=== PATIENT | male | born 1960 | race Caucasian/White ===

== ENCOUNTER 2019-09-04 09:13 | Outpatient (CLI) | payer BC, SELFPAY ==
--- NOTE | ~2019-09-04 | CT_ITS ---
EXAMINATION: CT abdomen pelvis wo/w con DATE: 09/04/2019 10:26 INDICATION: Hematuria TECHNIQUE: Computed tomography (CT) of the abdomen and pelvis was performed without and with 40 cc Om nipaque 350 intravenous contrast. The dose-length product was 851.52 mGy-cm. Automated exposure contr ol and iterative reconstruction technique were employed. COMPARISON: CT dated 06/03/2017 FINDINGS: There are nonobstructing bilateral renal stones, largest in the left kidney measuring 6-7 m m maximum dimension. No ureteral stones or hydronephrosis. Lung bases unremarkable. No significant pleural or pericardial effusion. Heart size is normal. There is atherosclerosis of the aorta without aneurysm. Enlarged prostate gland. Small subcentimeter hypodensities of the liver, most likely benign cysts or hemangioma. The spleen, p ancreas and adrenal glands are unremarkable. There are bilateral hypovascular lesions of the kidneys, largest in the right kidney measuring 1.9 cm, likely benign cysts. Ureters are normal in course and caliber. Bladder is unremarkable. Enlarged prostate gland. There is a chronic L3 burst fracture uncha nged. There is advanced degenerative changes at L2-3 and L3-4. IMPRESSION: 1. Nonobstructing bilateral nephrolithiasis. 2: Enlarged prostate gland. 3: Stable chronic L3 burst fracture. Reviewed, dictated and finalized at location A. ORICAL SITE GUIDE
== END 2019-09-04 09:14 | disposition home or self-care (01) ==
LOC: CHSIMG 09:17
PROVIDERS: PCP Internal Medicine; Visit Provider Internal Medicine
DX: R31.9 Hematuria, unspecified (principal)
CPT/HCPCS: 74178; Q9965

== ENCOUNTER 2019-12-09 14:12 | Outpatient (CLI) | payer BC, SELFPAY ==
--- NOTE | ~2019-12-09 | XR_ITS ---
XR abdomen/kub 1V 12/09/2019 14:26 Indication: Renal stones. Procedure: KUB Comparison: 01/31/2009 Findings: There are bilateral renal stones, largest in the lower pole of the left kidney measuring 10 mm. There are chronic compression deformities of L3 and L4. Bowel gas pattern nonobstructive. There are pelvic vascular calcifications. Impression: 1: Bilateral nephrolithiasis. Reviewed, dictated and finalized at location A. Impression: 1: Bilateral nephrolithiasis.
== END 2019-12-09 14:13 | disposition home or self-care (01) ==
LOC: CHSIMG 14:14
PROVIDERS: PCP Internal Medicine; Visit Provider Urology
DX: N20.0 Calculus of kidney (principal)
CPT/HCPCS: 74018

== ENCOUNTER 2019-12-23 00:24 | Outpatient (CLI) | payer BC, SELFPAY ==
[2019-12-23 17:33] LABS: SARS-CoV-2 RNA PCR Negative
== END 2019-12-23 00:25 | disposition home or self-care (01) ==
LOC: ANHCOVIDDT 00:24
PROVIDERS: PCP Internal Medicine; Visit Provider Urology
DX: Z01.818 Encounter for other preprocedural examination (principal); Z11.59 Encounter for screening for other viral diseases
CPT/HCPCS: 87635; C9803; U0003

== ENCOUNTER 2019-12-25 05:34 | Day surgery (SDC) | payer BC, SELFPAY ==
[2019-12-17 09:22] VITALS: BMI 25.1
--- NOTE | 2019-12-24 12:16 | WPDANESEPPF ---
Anes - Initial Pre Proc Eval Procedure: Operation Date: 12/25/19 07:30 Proposed Procedures p Flexible Cystoscopy, Left Extracorporeal Shock Wave Lithotripsy - Sanjiv Maynard MD Date/Time: 12/24/19 12:16 Surgeon: Sanjiv Maynard MD Pre Op Diagnosis: left kidney stones Patient Data Age: 59 Gender: M Height: 5 ft 9 in Weight: 77.11 kg Allergies Allergy/AdvReac Type Severity Reaction Status Date / Time No Known Allergies Allergy Mild Verified 12/25/19 06:38 Home Medications Medication Instructions Recorded Confirmed Type hydrocodone-acetaminophen 1 tablet PO BID 12/17/19 12/25/19 History mv-min-vit C-Glu-Blanca [id number] 250 mg PO DAILY 12/17/19 12/25/19 History [Airborne (with lysine acetate)] Patient hx anesthesia problems: none Family hx anesthesia problems: none PMFSH Past Medical History Medical History (Updated 12/24/19 @ 12:16 by Kana Reddy MD) Migraine Anes - Eval Final PreProcedure Day of Procedure 12/24/19 12:16 Patient weight: normal Heart: regular rate and rhythm Lungs: clear to auscultation Airway: Mallampati scale class II Neurological: alert and oriented Last oral intake: >/= 8 hours ASA classification: II Emergent: no Anesthetic plan: proceed Anesthesia type and monitoring: general LMA and standard monitoring Informed Consent: The patient's anesthetic plan and its attendant risks and benefits were discussed with the patient/family/POA. Questions were solicited and answers provided to the satisfaction of the patient/family/POA.
[2019-12-25] VITALS (8 sets, daily range): BP systolic 109–131; BP diastolic 70–91; PULSE 60–68; RESP 10–16; TEMP 36.1–36.6; O2SAT 99–100
--- NOTE | ~2019-12-25 | XR_ITS ---
EXAMINATION: XR abdomen/kub 1V DATE: 12/25/2019 06:34 INDICATION: Nephrolithiasis for planned lithotripsy. TECHNIQUE: A supine view of the abdomen on 2 radiographs was obtained. COMPARISON: CT dated 09/04/2019 FINDINGS: Unchanged 607 mm stone projecting over the lower pole of the left kidney. 2 mm stone projecting over the upper pole of the right kidney. Atherosclerotic calcifications and phleboliths in the pelvis. Nor mal bowel gas pattern. Lung bases are clear. Chronic L3 burst fracture. Severe disc height loss with sclerotic degenerative endplate changes at L3-L4. IMPRESSION: 1. Bilateral nephrolithiasis. Reviewed, dictated and finalized at location A.
--- NOTE | 2019-12-25 06:53 | WPDHPUPDATE1 ---
History and Physical Update Update Date/Time: 12/25/19 06:53 History and Physical has been reviewed, including an updated exam of the patient. There are NO changes in the patient's condition. Risks, benefits, and alternatives have been discussed and questions answered. Patient agrees to proceed with procedure.
[2019-12-25] MEDS: LACTATED RINGERS 1,000 ML 30 ML IV CONT (06:55)
[2019-12-25] MEDS: ceFAZolin 2 GM/D5W 50 ML 2 GM/50 ML BAG IVPB (07:23)
--- NOTE | 2019-12-25 08:04 | PM.PROC ---
Procedure Note - Detailed Date of procedure: 12/25/19 Pre-op diagnosis: left kidney stones Left renal stone 7 mm, microscopic hematuria Post-op diagnosis: same Procedure performed: Flexible cystoscopy, ESWL of left renal calculus Description of procedure: Patient was taken to the operative suite and correctly identified. Once anesthesia was obtained was prepped and draped usual sterile fashion. Sixteen Frisian scope was inserted into the bladder in direct vision there were no urethral strictures. External sphincter was intact. Prostate has some mild lateral lobe hypertrophy. The bladder itself was inspected in its entirety. Both ureteral orifices normal anatomic position. No tumors or other irregularities seen. Scope was removed. 2% viscous lidocaine inserted into the urethra. The left renal stone was then localized in both planes. Two thousand five hundred shocks were given to the stone. It appeared to have good fragmentation. He tolerated procedure well without any complications and is taken recovery room stable condition. He will follow up in the office in 7-10 days with a KUB. Anesthesia: GLMA Surgeon: Sanjiv Maynard MD Drains: No Packing: No Pathology: none sent Complications: No immediate complications Condition: stable Disposition: PACU
--- NOTE | 2019-12-25 08:46 | SUR.PHASEI ---
0845 12/24- SPOUSE CALLED WITH UPDATE.
== END 2019-12-25 09:39 | disposition home or self-care (01) ==
PROVIDERS: PCP Internal Medicine; Visit Provider Urology
PROC: (CPT 50590; principal; 2019-12-25 07:30)
DX: N20.0 Calculus of kidney (principal)
CPT/HCPCS: 50590; 74018; A9270; J0690; J1100; J2250; J2405; J2704; J3010; J7030; J7120

== ENCOUNTER 2021-06-23 09:14 | Outpatient (CLI) | payer BC, SELFPAY ==
[2021-06-23 09:49] LABS: Influenza Control Valid (Valid)
[2021-06-23 09:54] LABS: SARS-CoV-2 Ag Negative (Negative)
== END 2021-06-23 09:15 | disposition home or self-care (01) ==
LOC: CHSLAB 09:19
PROVIDERS: PCP Internal Medicine; Visit Provider Internal Medicine
DX: J06.9 Acute upper respiratory infection, unspecified (principal); Z20.822 Contact with and (suspected) exposure to COVID-19
CPT/HCPCS: 87426; 87804; C9803

== ENCOUNTER 2021-07-14 12:26 | Outpatient (CLI) | payer BC, SELFPAY ==
--- NOTE | ~2021-07-14 | CT_ITS ---
EXAMINATION: CT abdomen pelvis wo con DATE: 07/14/2021 13:10 INDICATION: Hematuria. Left flank pain. TECHNIQUE: Computed tomography (CT) of the abdomen and pelvis was performed without intravenous contr ast. Automated exposure control and iterative reconstruction technique were employed. The dose-length product was 201.51 mGy-cm. COMPARISON: CT abdomen and pelvis 09/04/2019 FINDINGS: The visualized portions of the lung bases demonstrate mild atelectasis. No pleural effusion . The heart size is normal. There are coronary artery calcifications. No pericardial effusion. Calcif ied left hilar lymph nodes are consistent with old granulomatous disease. There is a small right post erior diaphragmatic hernia containing fat. The liver, spleen, gallbladder, pancreas, and adrenal glan ds are normal. There is a 3 mm stone in right kidney. Left kidney is normal. The prostate is moderate ly enlarged. There is diverticulosis of the colon without evidence of diverticulitis. There are no di lated loops of bowel. The appendix is normal. There are no pathologically enlarged lymph nodes. There is no free intraperitoneal fluid. There is severe thoracic and lumbar spondylosis. There is a chroni c compression fracture of L3 with 3/5 loss of height. IMPRESSION: 1. 3 mm nonobstructing right kidney stone. Reviewed, dictated and finalized at location A. AL SKINNER
== END 2021-07-14 12:27 | disposition home or self-care (01) ==
LOC: CHSIMG 12:28
PROVIDERS: PCP Internal Medicine; Visit Provider Internal Medicine
DX: R31.9 Hematuria, unspecified (principal); R10.9 Unspecified abdominal pain
CPT/HCPCS: 74176

== ENCOUNTER 2021-11-10 10:22 | Outpatient (CLI) | payer BC, SELFPAY ==
--- NOTE | ~2021-11-10 | XR_ITS ---
XR knee LT 3V DATE: 11/10/2021 10:56 INDICATION: Left posterior knee pain. History of meniscus surgery. TECHNIQUE: 4 views including sunrise COMPARISON: 06/15/2014 left knee FINDINGS: There is severe loss of medial compartment joint space height. There is minimal periarticul ar spurring at the lateral compartment. Lateral compartment joint space appears well preserved. No fracture, dislocation, periosteal reaction or bone destruction or radiopaque intra-articular loose body or chondrocalcinosis is noted. IMPRESSION: Prominent loss of medial compartment joint space and minimal periarticular spurring at th e lateral compartment, consistent with osteoarthritis Reviewed, dictated and finalized at location A. IMPRESSION: Prominent loss of medial compartment joint space and minimal periar ticular spurring at the lateral compartment, consistent with osteoarthritis
== END 2021-11-10 10:23 | disposition home or self-care (01) ==
LOC: CHSIMG 10:23
PROVIDERS: PCP Internal Medicine; Visit Provider Internal Medicine
DX: M25.562 Pain in left knee (principal)
CPT/HCPCS: 73562

== ENCOUNTER 2022-01-09 10:11 | Outpatient (CLI) | payer BC, SELFPAY ==
--- NOTE | 2022-01-09 10:20 | PC.NURSE ---
Pt to room 211 amb. A&Ox3. Has no complaints. Plan of care explained. Consent signed. Oreinted to room. Call lieberman in reach. Reminded to call with needs.
[2022-01-09] MEDS: diphenhydrAMINE HCl CAP 25 MG CAPSULE PO (10:35)
[2022-01-09] MEDS: ACETAMINOPHEN 325 MG TABLET 650 MG PO (10:35)
[2022-01-09] MEDS: FAMOTIDINE 20 MG TABLET PO (10:35)
[2022-01-09] MEDS: BEBTELOVIMAB 175 MG/2 ML VIAL IV PUSH (10:40)
--- NOTE | 2022-01-09 11:10 | PC.NURSE ---
Pt tolerated medication well. Has no complaints. Discharged to home amb per self.
== END 2022-01-09 10:12 | disposition home or self-care (01) ==
LOC: CHSTREATRM 10:17
PROVIDERS: PCP Internal Medicine; Visit Provider Nurse Practitioner Family
DX: U07.1 COVID-19 (principal); J44.9 Chronic obstructive pulmonary disease, unspecified
CPT/HCPCS: A9270; M0222; Q0222

== ENCOUNTER → 2023-05-28 09:36 | Outpatient (CLI) | payer OTHER, SELFPAY ==
--- NOTE | ~2023-05-28 | CT_ITS ---
CT Scan of the Chest without Contrast: Clinical Indication: Lung nodule Technique: Contiguous sections were acquired throughout the chest without intravenous contrast. Dose reduction technique was used on this scan by utilizing automated exposure control and iterative recon struction technique. The dose-length product (DLP) was 92.93 mGy-cm. Findings: There is no evidence of any significant mediastinal, hilar or axillary lymphadenopathy. Coronary sukhdev ry calcifications are present. There is no evidence of pleural or pericardial effusion. There is a left upper lobe mass extending directly into the left hilum, measuring approximately 4.0 x 3.2 cm in size. Right lung is clear. Images through the upper abdomen reveal no abnormalities. Impression: 4.0 x 3.2 cm left upper lobe mass extending to the left hilum, most consistent with bronchogenic carc inoma. Tissue sampling recommended to establish histologic diagnosis. Contrast-enhanced chest CT and/ or PET/CT could be considered for further imaging evaluation, as indicated. Reviewed, dictated and finalized at location . CIATE PROFESSOR OF ECONOMICS Impression: 4.0 x 3.2 cm left upper lobe mass extending to the left hilum, most consistent with bronchogenic carcinoma. Tissue sampling recommended to establish histologi c diagnosis. Contrast-enhanced chest CT and/or PET/CT could be considered for f urther imaging evaluation, as indicated.
== END ==
DX: R91.8 Other nonspecific abnormal finding of lung field (principal)
CPT/HCPCS: 71250

== ENCOUNTER 2024-06-04 11:51 | Outpatient (CLI) | payer BC, SELFPAY ==
--- NOTE | ~2024-06-04 | XR_ITS ---
Clinical Indication: Dyspnea PA and lateral views of the chest: Comparison: 05/30/2015 Findings: The lungs are clear, without evidence of focal consolidation or pleural effusion. Cardiome diastinal silhouette is within normal limits. Bones and soft tissues are unremarkable. Impression: Clear lungs. Reviewed, dictated and finalized at location . TO DOOR FUNDRAISING COLLECTOR Impression: Clear lungs.
--- NOTE | ~2024-06-04 | CT_ITS ---
EXAMINATION: CTA chest PE protocol DATE: 06/04/2024 14:42 INDICATION: Dyspnea. Lung cancer. TECHNIQUE: Computed tomography (CT) pulmonary angiogram of the chest was performed with 100 mL Omnipa que-350 intravenous contrast. Additional 3D reconstructions utilizing coronal maximum intensity proje ction (MIP) were performed. Automated exposure control and iterative reconstruction technique were em ployed. The dose-length product was 650.08 mGy-cm. COMPARISON: None FINDINGS: No pulmonary embolism.. Sensitivity is however decreased in the subsegmental pulmonary arteries due t o suboptimal timing of the contrast bolus with the peak of contrast density passed into the aorta. Vo lume loss in the left hemithorax with elevation of the left hemidiaphragm and postoperative changes o f prior left upper lobectomy. Mild emphysema. No suspicious pulmonary nodules, pneumonia, pulmonary e ezekiel or pleural effusion. Heart size is normal. Atherosclerotic coronary artery calcifications. No pe ricardial effusion. No pathologically enlarged thoracic lymphadenopathy. Small sliding-type hiatal he rnia. Severe thoracic spondylosis. IMPRESSION: 1. No pulmonary embolism. Sensitivity decreased in some of the and smaller subsegmental pulmonary art eries due to suboptimal timing of the contrast bolus. No other acute cardiopulmonary disease. 2. Mild emphysema and status post post left upper lobectomy. 3. Small sliding-type hiatal hernia. Reviewed, dictated and finalized at location B. NE PAINTER IMPRESSION: 1. No pulmonary embolism. Sensitivity decreased in some of the and smaller subs egmental pulmonary arteries due to suboptimal timing of the contrast bolus. No other acute cardiopulmonary disease. 2. Mild emphysema and status post post left upper lobectomy. 3. Small sliding-type hiatal hernia.
[2024-06-04 12:22] LABS: D Dimer 1.22 mg/L (0.19-0.50)
[2024-06-04 12:34] LABS: Free T3 2.92 pg/mL (2.18-3.98); Free T4 Free Thyroxine 0.87 ng/dL (0.76-1.46); NT Pro B Type Natriuretic Pept 34 pg/mL (0-125); Thyroid Stimulating Hormone 1.74 uIU/mL (0.36-3.74)
[2024-06-04 14:18] LABS: Estimated Glomerular Filt Rate > 60
== END 2024-06-04 11:52 | disposition home or self-care (01) ==
PROVIDERS: PCP Internal Medicine; Visit Provider Internal Medicine
DX: R06.00 Dyspnea, unspecified (principal); R63.5 Abnormal weight gain; J43.9 Emphysema, unspecified; K44.9 Diaphragmatic hernia without obstruction or gangrene; Z90.2 Acquired absence of lung [part of]
CPT/HCPCS: 36415; 71046; 71275; 83880; 84439; 84443; 84481; 85380; Q9967

== ENCOUNTER 2024-06-05 07:57 | Outpatient (CLI) | payer BC, SELFPAY ==
--- NOTE | ~2024-06-05 | CT_ITS ---
EXAMINATION: CTA chest PE protocol DATE: 06/05/2024 08:34 INDICATION: Lung cancer presenting with dyspnea and elevated d-dimer. TECHNIQUE: Computed tomography (CT) pulmonary angiogram of the chest was performed with 100 mL Omnipa que-350 intravenous contrast. Additional 3D reconstructions utilizing coronal maximum intensity proje ction (MIP) were performed. Automated exposure control and iterative reconstruction technique were em ployed. The dose-length product was 506.25 mGy-cm. COMPARISON: 06/04/2024 FINDINGS: No pulmonary embolism. Sensitivity is again decreased in the subsegmental pulmonary arteries due to s uboptimal timing of the contrast bolus. Volume loss in the left hemithorax with elevation of the left hemidiaphragm and postoperative change of prior left upper lobectomy. Mild emphysema. Are couple juan carlos ateral calcified pulmonary nodules with calcified left hilar lymph nodes consistent with old granulom atous disease. No suspicious pulmonary nodules, pneumonia, pulmonary edema or pleural effusion. Heart size is normal. Atherosclerotic coronary artery calcifications. No pericardial effusion. Thoracic ao rta is normal in caliber with no dissection. No pathologically enlarged thoracic lymphadenopathy. Sma ll sliding-type hiatal hernia. Severe thoracic spondylosis. IMPRESSION: 1. No pulmonary embolism. Sensitivity decreased in some of the smaller subsegmental pulmonary arterie s due to suboptimal timing of the contrast bolus. 2. Status post left upper lobectomy with mild emphysema but no acute cardiopulmonary disease. 3. Small sliding-type hernia. Reviewed, dictated and finalized at location B. NG STAMPER IMPRESSION: 1. No pulmonary embolism. Sensitivity decreased in some of the smaller subsegme ntal pulmonary arteries due to suboptimal timing of the contrast bolus. 2. Status post left upper lobectomy with mild emphysema but no acute cardiopulm onary disease. 3. Small sliding-type hernia.
--- NOTE | ~2024-06-05 | US_ITS ---
EXAMINATION: US venous doppler [facility] DATE: 06/05/2024 08:42 INDICATION: Lung cancer. Lower limb edema. Positive d-dimer. TECHNIQUE: Grayscale ultrasound images without and with compression and Doppler ultrasound images of the bilateral lower extremity veins were obtained. COMPARISON: None. FINDINGS: The visualized portions of right common femoral vein, profunda (deep) femoral vein, femoral vein, pop liteal vein, posterior tibial veins, peroneal veins, gastrocnemius vein and greater saphenous vein ou tflow are patent. The visualized portions of left common femoral vein, profunda femoral vein, femoral vein, popliteal v ein, posterior tibial veins, peroneal veins, gastrocnemius vein and greater saphenous vein outflow ar e patent. IMPRESSION: 1. No deep venous thrombosis in either lower limb. Reviewed, dictated and finalized at location B. S PORTER
== END 2024-06-05 07:58 | disposition home or self-care (01) ==
LOC: CHSIMG 08:01
PROVIDERS: PCP Internal Medicine; Visit Provider Internal Medicine
DX: Z12.2 Encounter for screening for malignant neoplasm of respiratory organs (principal); R06.00 Dyspnea, unspecified; M79.89 Other specified soft tissue disorders; R79.1 Abnormal coagulation profile; Z90.2 Acquired absence of lung [part of]; J43.9 Emphysema, unspecified; K44.9 Diaphragmatic hernia without obstruction or gangrene
CPT/HCPCS: 71275; 93970; Q9967

== ENCOUNTER 2024-06-25 07:52 | Outpatient (CLI) | payer BC, SELFPAY ==
--- NOTE | ~2024-06-25 | CT_ITS ---
CT of the Abdomen and Pelvis: Indication: Abdominal pain Technique: 2.5 mm axial scans were obtained through the abdomen and pelvis following intravenous adm inistration of 100 cc of Omnipaque 350. Dose reduction technique was used on this scan by utilizing a utomated exposure control and iterative reconstruction technique. The dose-length product (DLP) was 6 14.42 mGy-cm. COMPARISON: 07/14/2021 Findings: Scans through the lung bases are unremarkable. The liver, spleen, pancreas, gallbladder, adrenals and kidneys are within normal limits. There are at herosclerotic calcifications of the aorta. No lymphadenopathy. No bowel obstruction or bowel wall thickening. There is sigmoid diverticulosis. Images through the pelvis were performed. Urinary bladder unremarkable. No pelvic mass seen. Prostate gland enlarged. No ascites. Stable L3 compression fracture with severe degenerative change at the L3-L4 level. Impression: No acute abnormality. Prostatomegaly. Stable L3 compression fracture. Reviewed, dictated and finalized at location . ER COORDINATOR Impression: No acute abnormality. Prostatomegaly. Stable L3 compression fracture.
--- NOTE | ~2024-06-25 | US_ITS ---
EXAMINATION: US thyroid DATE: 06/25/2024 08:27 INDICATION: Enlarged thyroid. TECHNIQUE: Multiple ultrasound images of the thyroid were obtained. COMPARISON: None. FINDINGS: The right thyroid lobe measures 3.1 x 1.4 x 1.2 cm. The left thyroid lobe measures 2.3 x 1.2 x 0.9 c m. There is normal echotexture and echogenicity throughout the thyroid gland. No discrete nodules id entified. Normal vascular flow is present. IMPRESSION: 1. Normal thyroid. Reviewed, dictated and finalized at location A. ARY MEDIA SPECIALIST IMPRESSION: 1. Normal thyroid.
[2024-06-30 16:03] LABS: H pylori, Urea Breath NOT DETECTED (NOT DETECTED)
== END 2024-06-25 07:53 | disposition home or self-care (01) ==
LOC: CHSIMG 07:53
PROVIDERS: PCP Internal Medicine; Visit Provider Nurse Practitioner Family
DX: R10.13 Epigastric pain (principal); R14.0 Abdominal distension (gaseous); R11.0 Nausea; R63.0 Anorexia; N40.0 Benign prostatic hyperplasia without lower urinary tract symptoms; M48.56XA Collapsed vertebra, not elsewhere classified, lumbar region, initial encounter for fracture
CPT/HCPCS: 74177; 76536; 83013; Q9967

== ENCOUNTER 2024-08-12 15:47 | Outpatient (CLI) | payer BC, SELFPAY ==
--- NOTE | ~2024-08-12 | XR_ITS ---
CHEST RADIOGRAPH CLINICAL HISTORY: COPD exacerbation . COMPARISON: 06/04/2024 TECHNIQUE: Single portable view of the chest. FINDINGS The cardiomediastinal silhouette is unremarkable. The lungs are clear. Visualized osseous structures and soft tissues are unremarkable. IMPRESSION: No focal infiltrate or effusion. Reviewed, dictated and finalized at location A. FITTER
[2024-08-12 16:08] LABS: Basophils Absolute Auto 0.08 K/mm3 (0.00-0.10); Basophils Percent Auto 0.6 % (0.0-1.0); Eosinophils Absolute Auto 0.28 K/mm3 (0.02-0.50); Eosinophils Percent Auto 1.9 % (1.0-6.0); Hematocrit 42.2 % (40.0-54.0); Immature Granulocyte Absolute 0.07 K/mm3 (0.00-0.00); Immature Granulocyte Percent A 0.5 % (0.0-0.0); Lymphocytes Absolute Auto 1.37 K/mm3 (1.10-4.50); Lymphocytes Percent Auto 9.5 % (18.0-42.0); Mean Corpuscular HGB Conc 33.2 g/dL (32-36); Mean Corpuscular Hemoglobin 29.6 pg (27.0-31.0); Mean Corpuscular Volume 89.2 fL (78.0-102.0); Mean Platelet Volume 9.1 fl (8.7-11.0); Monocytes Absolute Auto 1.04 K/mm3 (0.10-0.90); Monocytes Percent Auto 7.2 % (2.0-11.0); Neutrophils Absolute Auto 11.61 K/mm3 (1.70-7.20); Neutrophils Percent Auto 80.3 % (50.0-70.0); Platelet Count Result 261 K/mm3 (150-420); Red Blood Count 4.73 M/mm3 (4.70-6.10); Red Cell Distribution Width 12.6 % (11.6-14.4); White Blood Count 14.5 K/mm3 (4.8-10.8)
--- OUTSIDE RECORDS SUMMARY | 2024-08-12 16:33 | XMS_ITS | Clinical Summary ---
Author Organization [place] [id number] [facility] Address [address] [place] [address] Care Team Providers Care Merchandising Lead Name Role Phone Sharmin Polanco MD Primary Care Provider [phone] Chico Magaña MD Unavailable Cyrus Gottlieb MD PhD Unavailable Allergies Active Allergy Reactions Criticality Noted Date Comments Paclitaxel Shortness of breath,Flushing (skin) High 08/20/2023 Medications HYDROcodone-acet aminophen (NORCO) 10-325 mg per tablet Take 1 tablet by mouth as needed for pain 06/07/2023 Active LORazepam (ATIVAN) 1 mg tabletIndication s:anxiety Take 1 tablet (1 mg total) by mouth daily 05/31/2023 Active loratadine (CLARITIN) 10 mg tablet Take 1 tablet (10 mg total) by mouth daily Active umeclidinium-ania anteroL (ANORO ELLIPTA) 62.5-25 mcg/actuation blister with device Inhale 1 puff daily Active Active Problems Problem Noted Date Diagnosed Date COPD (chronic obstructive pulmonary disease) 09/2023 Assessment & Plan (07/17/2023 8:39 AM ANIMAL TECHNICIAN): - add long acting bronchodilator inhaler - add albuterol PRN Acute pain 07/16/2023 Assessment & Plan (07/20/2023 10:43 AM ANIMAL TECHNICIAN): - APS removed thoracic epidural - multimodal pain regimen: Tylenol, Nan, Robaxin, PRN oxycodone 5 mg q4h and IV dilaudid for breakthrough Current smoker 07/16/2023 Assessment & Plan (07/16/2023 2:58 PM ANIMAL TECHNICIAN): - Smoking cessation education - nicotine patch if needed - secretion management 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 S/p Left thoracotomy, left upper lobectomy, PA plasty on 07/16 - Chest tube removed, follow up post-pull CXR - encourage IS - ADAT - bowel regimen - DVT PPX: daily lovenox, SCDs - PT to eval and treat Lung mass 06/12/2023 Resolved Problems Problem Noted Date Diagnosed Date Resolved Date Hyponatremia 07/18/2023 07/20/2023 Assessment & Plan (07/18/2023 8:43 AM ANIMAL TECHNICIAN): - free water restrict , 1 L/day - monitor Encounters Date Type Department Care Team Description 06/15/2024 11:09 AM ANIMAL TECHNICIAN - 06/15/2024 11:59 PM ANIMAL TECHNICIAN Hospital Encounter [facility] [address] [place] [id number] Diagnosis unknown Discharge Disposition: Discharge to home or self care 05/19/2024 2:00 PM ANIMAL TECHNICIAN Office Visit [facility] [address] [place] [phone] Angelique Chinchilla, KRISTEN Malignant neoplasm of hilus of left lung (HCC) (Primary Dx) 05/19/2024 1:30 PM ANIMAL TECHNICIAN Lab [facility] [address] [place] [address] Malignant neoplasm of hilus of left lung (HCC) 05/14/2024 7:50 AM CDT - 05/14/2024 11:59 PM CDT Hospital Encounter [facility] Cardiac Testing [address] [place] [address] Enlarged pulmonary artery (HCC); Pulmonary heart disease, unspecified (HCC) Discharge Disposition: Discharge to home or self care from Last 3 Months Surgical History Surgery Date Site/Laterality Comments KIDNEY STONE SURGERY KNEE SURGERY PORT PLACEMENT CHEST >5 YEARS 08/09/2023 N/A PORT REMOVAL 04/01/2024 N/A Medical History Medical History Date Comments Hyperlipidemia Osteoarthritis Cluster headaches Kidney stones Male erectile dysfunction, unspecified Spinal stenosis Knee pain Actinic keratosis Hemorrhoids Sacroiliitis (HCC) Personal history of colonic polyps Panniculitis Restless leg syndrome Anxiety PONV (postoperative nausea and vomiting) Cancer (CMS/HCC) (HCC) Lung disease Family History Medical History Relation Name Comments Brain cancer Father Family history of malignant neoplasm - (Added by TW Conv) Relation Name Status Comments Father Social History Tobacco Use Types Packs/Day Years Used Date Smoking Tobacco: Former Cigarettes 0.1 49 0 07/16/1974 - 07/16/2023 Smokeless Tobacco: Never Tobacco Cessation:Counseling Given: Not Answered Comments:Has cut down to 1 pack a day(from 2) [facility] Utilities Answer Date Recorded In the past 12 months has Gevo, Microm[employer], oil, or water [employer] threatened to shut off services in your home? No 07/19/2023 Social Connection and Isolat ion Panel [NHANES] Answer Date Recorded In a typical week, how many times do you talk on the phone with family, friends, or neighbors? More than three times a week 07/19/2023 How often do you get togethe r with friends or relatives? More than three times a week 07/19/2023 How often do you attend [facility] or latter day services? More than 4 times per year 07/19/2023 Do you belong to any clubs o r organizations such as restorationism groups, unions, fraternal or athletic groups, or school groups? No 07/19/2023 How often do you attend meet ings of the clubs or organizations you belong to? Never 07/19/2023 Are you , , di vorced, , never , or living with a partner? 07/19/2023 AUDIT-C Answer Date Recorded Frequency of Alcohol Consumption Not on file 05/19/2024 Q2: How many drinks containi ng alcohol do you have on a typical day when you are drinking? Patient does not drink Frequency of Binge Drinking Not on file 11/2023 Overall Financial Resource Strain (CARDIA) Answe r Date Recorded How hard is it for you to pa y for the very basics like food, housing, medical care, and heating? Not hard at all 07/19/2023 Hunger Vital Sign Answer Date Recorded Within the past 12 months, y ou worried that your food would run out before you got the money to buy more. Never true 07/19/19 24 Within the past 12 months, t he food you bought just didn't last and you didn't have money to get more. Never true 07/19/2023 PRAPARE - Transportation Answer Date Re corded In the past 12 months, has l ack of transportation kept you from medical appointments or from getting medications? No 11/2023 In the past 12 months, has l ack of transportation kept you from meetings, work, or from getting things needed for daily living? No 07/19/2023 Housing Stability Vital Sign Answer Mynor e Recorded In the last 12 months, was t here a time when you were not able to pay the mortgage or rent on time? No 07/19/2023 In the last 12 months, how many places have you lived? 1 07/19/2023 In the last 12 months, was t here a time when you did not have a steady place to sleep or slept in a group home (including now)? No 07/19/2023 Personal Safety Answer Date Recorded Have you ever been in or are you currently in a harmful physical or emotional relationship or is someone making you feel afraid or unsafe? Denies 04/01/2024 Sex and Gender Information Value Date Recorded Sex Assigned at Not on file Legal Sex Male 8:54 AM ANIMAL TECHNICIAN Gender Identity Male 06/18/2023 10:47 PM ANIMAL TECHNICIAN Sexual Orientation Straight 06/18/2023 10 :47 PM ANIMAL TECHNICIAN Obstetrics History Last Filed Vital Signs Vital Sign Reading Time Taken Comments Blood Pressure 124/79 05/19/2024 1:18 PM ANIMAL TECHNICIAN Pulse 68 05/19/2024 1:18 PM ANIMAL TECHNICIAN Temperature 36.9 ??C (98.5 ??F) 05/19/2024 1:18 PM CS T Respiratory Rate 18 05/19/2024 1:18 PM ANIMAL TECHNICIAN Oxygen Saturation 97% 05/19/2024 1:18 PM ANIMAL TECHNICIAN Inhaled Oxygen Concentration - - Weight 91.6 kg (202 lb) 05/19/2024 1:18 PM ANIMAL TECHNICIAN Height 170.2 cm (5' 7 ) 12/03/2023 10:14 AM CDT Body Mass Index 31.64 12/03/2023 10:14 AM CDT Plan of Treatment Health Maintenance Due Date Last Done Comments Colon Cancer Screening-Colonoscopy 1960 Depression Screening 1960 Hepatitis C Screening 1960 Prostate Cancer Screening-PSA 1960 Pneumococcal vaccine <65 (1 of 2 - PCV) 1966 Hepatitis B Screening 1978 Regular Well Visit/Exam 18-64 1978 Zoster Vaccine (1 of 2) 2010 Covid-19 Vaccine (3 - season) 03/15/202409/2020, 02/24/2021 Influenza Vaccine (#1) 2024 04/27/2014 DTaP/Tdap/Td Vaccine (3 - Td or Tdap) 08/24/203004/2021, 10/06/2010 Medical Devices Implanted Type Area Learning Coach Device Identifier Shelf Expiration Date Model / Serial / Lot [employer] Xcela Power Port 8fr [id number] - [id number] Implanted:Qty: 1 on 08/09/2023 at [facility] [employer] 03/17/2028 [id number] / / [id number] Procedures Procedure Name Priority Date/Time Associated Diagnosis Comments CT BODY OUTSIDE CONSULT Routine 06/15/2024 11:09 AM ANIMAL TECHNICIAN Diagnosis unknown EGFR Routine 05/19/2024 1:04 PM ANIMAL TECHNICIAN Malignant neoplasm of hilus of left lung (HCC) DIFFERENTIAL AUTO Routine 05/19/2024 1:0 4 PM ANIMAL TECHNICIAN Malignant neoplasm of hilus of left lung (HCC) CBC WITH AUTO DIFFERENTIAL Routine 05/19/2024 1:04 PM ANIMAL TECHNICIAN Malignant neoplasm of hilus of left lung (HCC) COMPREHENSIVE METABOLIC PANEL Routine 05/19/2024 1:04 PM ANIMAL TECHNICIAN Malignant neoplasm of hilus of left lung (HCC) TRANSTHORACIC ECHO (TTE) COMPLETE W DOPPLER/CF WO CONTRAST Routine 05/14/2024 8:15 AM CDT 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 ?? No central pulmonary embolism. ??However full evaluation for pulmonary embolism is limited given the lack of pulmonary artery opacification. 2. Postsurgical changes of left upper lobectomy. ??No suspicious pulmonary nodules. 3. Interval resolution of bilateral lower lobe airspace opacities. The findings, conclusions and recommendations within this report do not replace the initial findings, conclusions ??and recommendations made at the facility where the study was performed based upon the imaging and clinical condition at that time. ??Comparison with the prior report and clinical history is necessary. ??The provided images may or may not represent the [place] source data set and thus may contain changes that may lower the accuracy of this second-opinion interpretation. Dictated by: Darron Dolan M.D. The radiology attending physician has personally reviewed this study, and had reviewed and/or edited this written report and agrees with it. Electronically signed by: eHrb Guillory M.D. Narrative 06/15/2024 12:15 PM ANIMAL TECHNICIAN EXAMINATION: RADIOLOGY CONSULTATION ON OUTSIDE IMAGING STUDY STUDY INITIALLY PERFORMED: 06/05/[address] [facility]. TYPE OF STUDY: Multiple CT images of the chest with intravenous contrast are provided at the time of this interpretation. CONTRAST ROUTE: Contrast was administered via the intravenous route. The protocol was adequate to address the clinical question. The outside final report was not available at the time of this second opinion interpretation. 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 COMPARISON: CT chest abdomen 03/10/2024. FINDINGS: Heart size normal. ??No pericardial effusion. ??Pulmonary arteries are not well opacified. ??No central pulmonary embolism but there is limited evaluation of the segmental and subsegmental pulmonary arteries. ??Thoracic aorta and main pulmonary artery are normal in caliber. ??No supraclavicular, axillary, or mediastinal lymphadenopathy. Postsurgical changes of left upper lobectomy. ??Emphysematous changes bilaterally. ??Previously seen bilateral lower lobe airspace opacities have resolved. ??Stable 4 mm pulmonary nodule within the right upper lobe (table position -53.8). No acute processes in the imaged upper abdomen. No suspicious osseous lesions. Procedure Note Herb Guillory MD - 06/15/2024 EXAMINATION: RADIOLOGY CONSULTATION ON OUTSIDE IMAGING STUDY STUDY INITIALLY PERFORMED: 06/05/[address] [facility]. TYPE OF STUDY: Multiple CT images of the chest with intravenous contrast are provided at the time of this interpretation. CONTRAST ROUTE: Contrast was administered via the intravenous route. The protocol was adequate to address the clinical question. The outside final report was not available at the time of this second opinion interpretation. 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 COMPARISON: CT chest abdomen 03/10/2024. FINDINGS: Heart size normal. No pericardial effusion. Pulmonary arteries are not well opacified. No central pulmonary embolism but there is limited evaluation of the segmental and subsegmental pulmonary arteries. Thoracic aorta and main pulmonary artery are normal in caliber. No supraclavicular, axillary, or mediastinal lymphadenopathy. Postsurgical changes of left upper lobectomy. Emphysematous changes bilaterally. Previously seen bilateral lower lobe airspace opacities have resolved. Stable 4 mm pulmonary nodule within the right upper lobe (table position -53.8). No acute processes in the imaged upper abdomen. No suspicious osseous lesions. IMPRESSION: 1. No central pulmonary embolism. However full evaluation for pulmonary embolism is limited given the lack of pulmonary artery opacification. 2. Postsurgical changes of left upper lobectomy. No suspicious pulmonary nodules. 3. Interval resolution of bilateral lower lobe airspace opacities. The findings, conclusions and recommendations within this report do not replace the initial findings, conclusions and recommendations made at the facility where the study was performed based upon the imaging and clinical condition at that time. Comparison with the prior report and clinical history is necessary. The provided images may or may not represent the [place] source data set and thus may contain changes that may lower the accuracy of this second-opinion interpretation. Dictated by: Darron Dolan M.D. The radiology attending physician has personally reviewed this study, and had reviewed and/or edited this written report and agrees with it. Electronically signed by: Herb Guillory M.D. us Cyrus Gottlieb MD PhD IMG CT PROCEDURES Fin al Result * eGFR (05/19/2024 1:04 PM ANIMAL TECHNICIAN) eGFR >90 >=60 mL/min/1. 73 m2 Comment: Interpretive Data Reference Interval Normal ?>/= 90 mL/min/1.73m2 Mildly decreased* ? 60 - 89 mL/min/1.73m2 Mildly to moderately decreased ?45 - 59 mL/min/1.73m2 Moderately to severely decreased ??30 - 44 mL/min/1.73m2 Severely decreased ?15 - 29 mL/min/1.73m2 Kidney Failure ?< 15 ??mL/min/1.73m2 *Relative to young adult level Estimated glomerular filtration rate is determined by the 2020 CKD-EPI equation recommended by the National Kidney Foundation (A Unifying Approach to GFR Estimation: Recommendations of the NKF-ASK Task Force on Reassessing the Inclusion of Race in Diagnosing Kidney Disease, JASN 2020). The CKD-EPI equation should not be used for patients with unstable renal function and has not been validated in children and those over 70. Current interpretive data was last reviewed 2021. Testing performed by: [address] [address] Blood 05/19/2024 1:04 PM ANIMAL TECHNICIAN 05/19/2024 1:07 PM ANIMAL TECHNICIAN Cyrus Gottlieb MD PhD LAB BLOOD ORDERABLES Final Result [facility] [address] [facility] Department [place] [address] * (ABNORMAL) Differential, auto (05/19/2024 1:04 PM ANIMAL TECHNICIAN) Neutrophil abs 7.0(H) 1.5 - 6.5 K/cumm Comment:Testing performed by : [address] [address] Imm gran abs 0.1 0.0 - 0.1 K/cumm [facility] Comment:Testing performed by : [address] [address] Lymphocyte abs 1.6 0.8 - 3.3 K/cumm [facility] Comment:Testing performed by : [address] [address] Monocyte abs 0.7 0.2 - 0.8 K/cumm [facility] Comment:Testing performed by : [address] [address] Eosinophil abs 0.4 0.0 - 0.5 K/cumm [facility] Comment:Testing performed by : [address] [address] Basophil abs 0.1 0.0 - 0.1 K/cumm [facility] Comment:Testing performed by : [address] [address] Neutrophil pct 71.5 % [facility] Comment: Interpretive Data Percent cell count reference ranges are not reported, since discordance with absolute values may lead to misinterpretation of CBC data. Current Interpretive Data was last revised on 2017. Testing performed by: [address] [address] Imm gran pct 0.6 % [facility] Comment: Interpretive Data Percent cell count reference ranges are not reported, since discordance with absolute values may lead to misinterpretation of CBC data. Current Interpretive Data was last revised on 2017. Testing performed by: [address] [address] Lymphocyte pct 16.6 % [facility] Comment: Interpretive Data Percent cell count reference ranges are not reported, since discordance with absolute values may lead to misinterpretation of CBC data. Current Interpretive Data was last revised on 2017. Testing performed by: [address] [address] Monocyte pct 7.0 % [facility] Comment: Interpretive Data Percent cell count reference ranges are not reported, since discordance with absolute values may lead to misinterpretation of CBC data. Current Interpretive Data was last revised on 2017. Testing performed by: [address] [address] Eosinophil pct 3.6 % [facility] Comment: Interpretive Data Percent cell count reference ranges are not reported, since discordance with absolute values may lead to misinterpretation of CBC data. Current Interpretive Data was last revised on 2017. Testing performed by: [address] [address] Basophil pct 0.7 % [facility] Comment: Interpretive Data Percent cell count reference ranges are not reported, since discordance with absolute values may lead to misinterpretation of CBC data. Current Interpretive Data was last revised on 2017. Testing performed by: [address] [address] Blood 05/19/2024 1:04 PM ANIMAL TECHNICIAN 05/19/2024 1:07 PM ANIMAL TECHNICIAN us Cyrus Gottlieb MD PhD LAB BLOOD ORDERABLES Final Result [facility] [address] [facility] [place] [address] * (ABNORMAL) CBC with auto differential (05/19/2024 1:04 PM ANIMAL TECHNICIAN) WBC 9.8 3.8 - 9.9 K/cumm Comment:Testing performed by : [address] [address] Hgb 13.7 13.0 - 17.5 g/dL [facility] Comment:Testing performed by : [address] [address] Hct 40.5 38.9 - 50.3 % [facility] Comment:Testing performed by : [address] [address] Plt 233 150 - 400 K/cumm [facility] Comment:Testing performed by : [address] [address] MPV 9.0(L) 9.1 - 12.3 fL [facility] Comment:Testing performed by : [address] [address] RBC 4.59 4.30 - 5.80 M/cumm [facility] Comment:Testing performed by : [address] [address] MCV 88.2 81.3 - 96.4 fL [facility] Comment:Testing performed by : [address] [address] MCH 29.8 27.1 - 33.3 pg [facility] Comment:Testing performed by : [address] [address] MCHC 33.8 32.3 - 35.7 g/dL [facility] Comment:Testing performed by : [address] [address] RDW CV 15.3(H) 11.1 - 14.9 % [facility] Comment:Testing performed by : [address] [address] RDW SD 49.5(H) 35.7 - 48.1 fL [facility] Comment:Testing performed by : [address] [address] NRBC abs 0.00 0.00 - 0.01 K/cumm [facility] Comment:Testing performed by : [address], [place]., [address] Blood 05/19/2024 1:04 PM ANIMAL TECHNICIAN 05/19/2024 1:07 PM ANIMAL TECHNICIAN us Cyrus Gottlieb MD PhD LAB BLOOD ORDERABLES Final Result Performing Organization Address City/State/[facility] Co de Phone Number [facility] [facility] Department [place] [address] * Comprehensive metabolic panel (05/19/2024 1:04 PM ANIMAL TECHNICIAN) Sodium 138 135 - 145 mmol/L Comment:Testing performed by : [address] [address] Potassium, pl 4.4 3.3 - 4.9 mmol/L [facility] Comment:Testing performed by : [address] [address] Chloride 101 97 - 110 mmol/L [facility] Comment:Testing performed by : [address] [address] CO2 27 22 - 32 mmol/L [facility] Comment:Testing performed by : [address] [address] Anion gap 10 2 - 15 mmol/L [facility] Comment:Testing performed by : [address] [address] BUN 16 6 - 25 mg/dL [facility] Comment:Testing performed by : [address] [address] Creatinine 0.80 0.80 - 1.30 mg/dL [facility] Comment:Testing performed by : [address] [address] Glucose 90 70 - 199 mg/dL [facility] Comment: Interpretive Data Fasting glucose >/= 126 mg/dl is diagnostic for diabetes. ?? Fasting is defined as no caloric intake for at least 8 hours. Fasting glucose between 100 mg/dl to 125 mg/dl is diagnostic of prediabetes. In a patient with classic symptoms of hyperglycemia or hyperglycemic crisis, a random glucose >/= 200 mg/dl is diagnostic for diabetes. In the absence of unequivocal hyperglycemia, results should be confirmed by repeat testing. The classification and Diagnosis of Diabetes Diabetes Care 2021; 46: S19-S40. Current interpretive data was last revised 2022. Testing performed by: [address] [address] Calcium 9.2 8.5 - 10.3 mg/dL [facility] Comment:Testing performed by : [address] [address] Bilirubin, total 0.3 0.1 - 1.2 mg/dL [facility] Comment:Testing performed by : [address] [address] Protein, pl 7.2 6.5 - 8.5 g/dL [facility] Comment:Testing performed by : [address] [address] Albumin 4.3 3.5 - 5.0 g/dL [facility] Comment:Testing performed by : [address] [address] Alk phos 113 40 - 130 Units/L [facility] Comment:Testing performed by : [address] [address] ALT 27 7 - 55 Units/L [facility] Comment:Testing performed by : [address] [address] AST 23 10 - 50 Units/L [facility] Comment:Testing performed by : [address] [address] Blood 05/19/2024 1:04 PM ANIMAL TECHNICIAN 05/19/2024 1:07 PM ANIMAL TECHNICIAN us Cyrus Gottlieb MD PhD LAB BLOOD ORDERABLES Final Result [facility] [address] [facility] [place] [address] * TRANSTHORACIC ECHO (TTE) COMPLETE W DOPPLER/CF WO CONTRAST (05/14/2024 8:15 AM CDT) Anatomical Region Laterality Modality Ultrasound 05/14/2024 8:15 AM CDT Narrative 05/14/2024 10:00 AM CDT ? Adult Echocardiogram + ----- --------+ :Name: SEFERINO RODRIGUEZ JR.Study Date: 05/14/2024 ?Status: MHE ?: : ? Patient Location: MHE CARD^^^MHEHeight: 67 in ?: : ? Weight: 200 lbBP: 146/87 mmHg: :: 1960 ?Gender: Male ?BSA: 2.0 m2 ?: :Reason For Study: evaluate for enlarged pulmonary artery ?: :Ordering Physician: HEATHER, ? : :CYRUS ? : :Referring Physician: HEATHER, ?: :CYRUS LINDA ?: :Performed By: Britney ?: :Ronald, RDCS ?: + ----- --------+ Procedure A two-dimensional transthoracic echocardiogram with color flow and Doppler was performed. Left Ventricle The left ventricle is normal in size. There is normal left ventricular wall thickness. Left ventricular systolic function is normal. Ejection Fraction = 55-60%. The left ventricular wall motion is normal. Right Ventricle The right ventricle is normal size. There is normal right ventricular wall thickness. The right ventricular systolic function is normal. Atria The left atrial size is normal. Right atrial size is normal. Mitral Valve The mitral valve is normal. Tricuspid Valve The tricuspid valve is normal. Aortic Valve Aortic valve structure is normal. No aortic stenosis . No aortic regurgitation is present. Pulmonic Valve The pulmonic valve is not well visualized. Great Vessels The aortic root is normal size. Pericardium There is no pericardial effusion. Diastology Grade I diastolic dysfunction, (abnormal relaxation pattern). Interpretation Summary The left ventricle is normal in size. There is normal left ventricular wall thickness. Left ventricular systolic function is normal. Ejection Fraction = 55-60%. The left ventricular wall motion is normal. The right ventricle is normal size. There is normal right ventricular wall thickness. The right ventricular systolic function is normal. Grade I diastolic dysfunction, (abnormal relaxation pattern). + + :Measurements with Normals ?: :IVSd: ?(0.6-1.2 ?? LVIDd: ?(3.5-5.7 ?? Ao root diam: ?(2.0-3.7 ?? : :0.78 cm ?cm) ?3.7 cm ?cm) ?3.0 cm ? cm) ?: :LVPWd: ? (0.6-1.1 ?? LVIDs: ?(3.1-4.6 ?? LA dimension: ?(1.9-4.0 ?? : :0.78 cm ?cm) ?2.6 cm ?cm) ?3.7 cm ? cm) ?: + + MMode/2D Measurements & Calculations RVDd: 3.3 cm FS: 30.2 % ?Ao root area: 7.1 cm2 ??LVOT diam: 2.0 cm ? EDV(Teich): 57.0 ml ?LVOT area: 3.1 cm2 ? ESV(Teich): 23.7 ml Doppler Measurements & Calculations MV E max omari: ? MV dec time: ? Ao V2 max: ? LV V1 max P.7 cm/sec ? 0.21 sec ? 145.0 cm/sec ? 6.9 mmHg MV A max omari: ?Ao max P.4 mmHgLV V1 mean P.3 cm/sec ?Ao V2 mean: ?3.0 mmHg MV E/A: 0.77 ? 97.3 cm/sec ?LV V1 max: ? Ao mean PG: ?131.0 cm/sec ? 4.0 mmHg ? LV V1 mean: ? Ao V2 VTI: 29.1 cm 79.1 cm/sec ? RODOLFO(I,D): 2.9 cm2 ??LV V1 VTI: 27.0 cm ? RODOLFO(V,D): 2.8 cm2 ? SV(LVOT): 84.8 ml ?? PA V2 max: ? RV V1 max: ? TR max omari: ?112.0 cm/sec ? 77.6 cm/sec ?258.0 cm/sec ?PA max P.0 mmHg ? TR max PG: ?26.6 mmHg ?RVSP(TR): 29.6 mmHg ? RAP systole: 3.0 mmHg Electronically signed by: Bharathi Johnson MD 05/14/2024 10:00 AM Procedure Note Bharathi Johnson MD - 05/14/2024 Adult Echocardiogram + ----- --------+ :Name: MICHAELSEFERINO JR.Study Date: 05/14/2024 Status:MHE : : [facility]^^^MHEHeight: 67in : : Weight:200 lbBP: 146/87 mmHg: :: 1960 Gender: Male BSA: 2.0m2 : :Reason For Study: evaluate for enlarged pulmonary artery: :Ordering Physician: ,: :CYRUS: :Referring Physician: ,: :CYRUS MCKEON: :Performed By: Britney: :EDGARDO Cardenas: + ----- --------+ Procedure A two-dimensional transthoracic echocardiogram with color flow and Dopplerwas performed. Left Ventricle The left ventricle is normal in size. There is normal left ventricularwall thickness. Left ventricular systolic function is normal. Ejection Fraction= 55-60%. The left ventricular wall motion is normal. Right Ventricle The right ventricle is normal size. There is normal right ventricularwall thickness. The right ventricular systolic function is normal. Atria The left atrial size is normal. Right atrial size is normal. Mitral Valve The mitral valve is normal. Tricuspid Valve The tricuspid valve is normal. Aortic Valve Aortic valve structure is normal. No aortic stenosis . No aorticregurgitation is present. Pulmonic Valve The pulmonic valve is not well visualized. Great Vessels The aortic root is normal size. Pericardium There is no pericardial effusion. Diastology Grade I diastolic dysfunction, (abnormal relaxation pattern). Interpretation Summary The left ventricle is normal in size. There is normal left ventricular wall thickness. Left ventricular systolic function is normal. Ejection Fraction = 55-60%. The left ventricular wall motion is normal. The right ventricle is normal size. There is normal right ventricular wall thickness. The right ventricular systolic function is normal. Grade I diastolic dysfunction, (abnormal relaxation pattern). + + :Measurements with Normals: :IVSd: (0.6-1.2 LVIDd: (3.5-5.7 Ao root diam:(2.0-3.7 : :0.78 cm cm) 3.7 cm cm) 3.0 cm cm): :LVPWd: (0.6-1.1 LVIDs: (3.1-4.6 LA dimension:(1.9-4.0 : :0.78 cm cm) 2.6 cm cm) 3.7 cm cm): + + MMode/2D Measurements & Calculations RVDd: 3.3 cm FS: 30.2 % Ao root area: 7.1 cm2 LVOT diam: 2.0cm EDV(Teich): 57.0 ml LVOT area: 3.1cm2 ESV(Teich): 23.7 ml Doppler Measurements & Calculations MV E max omari: MV dec time: Ao V2 max: LV V1 max P.7 cm/sec 0.21 sec 145.0 cm/sec 6.9 mmHg MV A max omari: Ao max P.4 mmHgLV V1 mean P.3 cm/sec Ao V2 mean: 3.0 mmHg MV E/A: 0.77 97.3 cm/sec LV V1 max: Ao mean P.0 cm/sec 4.0 mmHg LV V1 mean: Ao V2 VTI: 29.1 cm 79.1 cm/sec RODOLFO(I,D): 2.9 cm2 LV V1 VTI: 27.0cm RODOLFO(V,D): 2.8 cm2 SV(LVOT): 84.8 ml PA V2 max: RV V1 max: TR max omari: 112.0 cm/sec 77.6 cm/sec 258.0 cm/sec PA max P.0 mmHg TR max P.6 mmHg RVSP(TR): 29.6mmHg RAP systole: 3.0 mmHg Electronically signed by: Bharathi Johnson MD 05/14/2024 10:00 AM us Cyrus Gottlieb MD PhD CV ECHO PROCEDURES Fi nal Result from Last 3 Months Insurance [employer] [place] [place] Directives For more information, please contact: [phone] * Full Code (Latest Code Status on File) Date Activated Date Inactivated Comments 04/01/2024 11:35 AM 04/02/2024 5:04 AM * Full Code Date Activated Date Inactivated Comments 08/09/2023 11:38 AM 08/10/2023 5:09 AM * Full Code Date Activated Date Inactivated Comments 07/16/2023 12:19 PM 07/21/2023 2:39 PM Care Teams Merchandising Lead Relationship Specialty Start Date End Date Sharmin Polanco MD [address] [place] [address] PCP - General 09/25/17 Chico Magaña MD [address] [place] [address] Referring Physician Thoracic Surgery 06/28/23 Cyrus Gottlieb MD PhD [address] [place] [address] MEDICAL ONCOLOGY, [address] [address] Medical Oncologist/Trophy Assembler Medical Oncology 06/28/23
--- OUTSIDE RECORDS SUMMARY | 2024-08-12 16:33 | XMS_ITS | Referral Summary ---
Author Organization [facility] [address] [facility] Address [address] [place] [address] Care Team Providers Care Requirements Engineer Name Role Phone Sharmin Polanco MD Primary Care Provider hCico Magaña MD Unavailable Cyrus Gottlieb MD PhD Unavailable Encounters Date Type Department Care Team Description 06/15/2024 11:09 AM ACCOUNTANT BUDGET - 06/15/2024 11:59 PM ACCOUNTANT BUDGET Hospital Encounter [facility] [address] [place] [id number] Diagnosis unknown Discharge Disposition: Discharge to home or self care 05/19/2024 1:30 PM ACCOUNTANT BUDGET Lab [facility] [address] [place] [address] Malignant neoplasm of hilus of left lung (HCC) 05/19/2024 2:00 PM ACCOUNTANT BUDGET Office Visit [facility] [address] [facility] [address] [place] [address] Aneglique Chinchilla, JOURNEYMAN PRESSMAN Malignant neoplasm of hilus of left lung (HCC) (Primary Dx) 05/14/2024 7:50 AM CDT - 05/14/2024 11:59 PM CDT Hospital Encounter [facility] Cardiac Testing [facility] [place] [address] Enlarged pulmonary artery (HCC); Pulmonary heart disease, unspecified (HCC) Discharge Disposition: Discharge to home or self care from Last 3 Months Allergies Active Allergy Reactions Criticality Noted Date [...] 09/2023 Assessment & Plan (07/17/2023 8:39 AM ACCOUNTANT BUDGET): - add long acting bronchodilator inhaler - add albuterol PRN Acute pain 07/16/2023 Assessment & Plan (07/20/2023 10:43 AM ACCOUNTANT BUDGET): - APS removed thoracic epidural - multimodal pain regimen: Tylenol, Nan, Robaxin, PRN oxycodone 5 mg q4h and IV dilaudid for breakthrough Current smoker 07/16/2023 Assessment & Plan (07/16/2023 2:58 PM ACCOUNTANT BUDGET): - Smoking cessation education - nicotine patch if needed - secretion management Malignant neoplasm of hilus of left lung 023 Cancer Staging:Clinical stage from 07/30/2023:Stage IIB(cT2a, cN1, cM0) - Signed by Cyrus Gottlieb MD PhD on 07/30/2023 Assessment & Plan (07/20/2023 10:29 AM ACCOUNTANT BUDGET): Left hilar mass. S/p Left thoracotomy, left upper lobectomy, PA plasty on 07/16 - Chest tube removed, follow up post-pull CXR - encourage IS - ADAT - bowel regimen - DVT PPX: daily lovenox, SCDs - PT to eval and treat Lung mass 06/12/2023 Resolved Problems Problem Noted Date Diagnosed Date Resolved Date Hyponatremia 07/18/2023 07/20/2023 Assessment & Plan (07/18/2023 8:43 AM ACCOUNTANT BUDGET): - free water restrict , 1 L/day - monitor Social History Tobacco Use Types Packs/Day Years Used Date Smoking Tobacco: Former Cigarettes 0.1 49 0 07/16/1974 - 07/16/2023 Smokeless Tobacco: Never Tobacco Cessation:Counseling Given: Not Answered Comments:Has cut down to 1 pack a day(from 2) [facility] Utilities Answer Date Recorded In the past 12 months has [employer], gas, oil, or water [employer] threatened to shut off services in your [...] week 07/19/2023 How often do you attend [facility] or protestant services? More than 4 times per year 07/19/2023 Do you belong to any clubs o r organizations such as religion groups, unions, fraternal or athletic groups, or [...] place to sleep or slept in a care home (including now)? No 07/19/2023 Personal Safety Answer Date Recorded Have you ever been in or are you currently in a harmful physical or emotional relationship or is someone making you feel afraid or unsafe? Denies 04/01/2024 Sex and Gender Information Value Date Recorded Sex Assigned at Not on file Legal Sex Male 8:54 AM ACCOUNTANT BUDGET Gender Identity Male 06/18/2023 10:47 PM ACCOUNTANT BUDGET Sexual Orientation Straight 06/18/2023 10 :47 PM ACCOUNTANT BUDGET Last Filed Vital Signs Vital Sign Reading Time Taken Comments Blood Pressure 124/79 05/19/2024 1:18 PM ACCOUNTANT BUDGET Pulse 68 05/19/2024 1:18 PM ACCOUNTANT BUDGET Temperature 36.9 ??C (98.5 ??F) 05/19/2024 1:18 PM CS T Respiratory Rate 18 05/19/2024 1:18 PM ACCOUNTANT BUDGET Oxygen Saturation 97% 05/19/2024 1:18 PM ACCOUNTANT BUDGET Inhaled Oxygen Concentration - - Weight 91.6 kg (202 lb) 05/19/2024 1:18 PM ACCOUNTANT BUDGET Height 170.2 cm (5' 7 ) 12/03/2023 10:14 AM CDT Body Mass Index 31.64 12/03/2023 10:14 AM CDT Plan of Treatment Not on file Medical Devices Implanted Type Area Correction Officer Supervisor Device Identifier Shelf Expiration Date Model / Serial / Lot [employer] Xcela Power Port 8fr [id number] - [id number] Implanted:Qty: 1 on 08/09/2023 at [facility] [employer] 03/17/2028 [id number] / / [id number] Procedures Procedure Name Priority Date/Time Associated Diagnosis Comments CT BODY OUTSIDE CONSULT Routine 06/15/2024 11:09 AM ACCOUNTANT BUDGET Diagnosis unknown EGFR Routine 05/19/2024 1:04 PM ACCOUNTANT BUDGET Malignant neoplasm of hilus of left lung (HCC) DIFFERENTIAL AUTO Routine 05/19/2024 1:0 4 PM ACCOUNTANT BUDGET Malignant neoplasm of hilus of left lung (HCC) CBC WITH AUTO DIFFERENTIAL Routine 05/19/2024 1:04 PM ACCOUNTANT BUDGET Malignant neoplasm of hilus of left lung (HCC) COMPREHENSIVE METABOLIC PANEL Routine 05/19/2024 1:04 PM ACCOUNTANT BUDGET Malignant neoplasm of hilus of left lung (HCC) TRANSTHORACIC ECHO (TTE) COMPLETE W DOPPLER/CF WO CONTRAST Routine 05/14/2024 8:15 AM CDT 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 ?? No central pulmonary embolism. ??However [...] images may or may not represent the [place] source data set and thus may contain changes that may lower the accuracy of this second-opinion interpretation. Dictated by: Darron Dolan M.D. The radiology attending physician has personally reviewed this study, and had reviewed and/or edited this written report and agrees with it. Electronically signed by: Herb Guillory M.D. Narrative 06/15/2024 12:15 PM ACCOUNTANT BUDGET EXAMINATION: RADIOLOGY CONSULTATION ON OUTSIDE IMAGING STUDY STUDY INITIALLY PERFORMED: 06/05/2024 at [facility]. TYPE OF STUDY: Multiple CT images of [...] IMAGING STUDY STUDY INITIALLY PERFORMED: 06/05/2024 at [facility]. TYPE OF STUDY: Multiple CT images of [...] images may or may not represent the [place] source data set and thus may contain [...] al Result * eGFR (05/19/2024 1:04 PM ACCOUNTANT BUDGET) [facility] eGFR >90 >=60 mL/min/1. 73 m2 Comment: [...] was last reviewed 2021. Testing performed by: [facility], [address] [place] [address]., [address] Blood 05/19/2024 1:04 PM ACCOUNTANT BUDGET 05/19/2024 1:07 PM ACCOUNTANT BUDGET us Cyrus Gottlieb MD PhD LAB BLOOD ORDERABLES Final Result [facility] [address] [facility] Department [place] [address] * (ABNORMAL) Differential, auto (05/19/2024 1:04 PM ACCOUNTANT BUDGET) [facility] Neutrophil abs 7.0(H) 1.5 - 6.5 K/cumm Comment:Testing performed by : [facility], [address] [place] [address], [place]., [address] Imm gran abs 0.1 0.0 - 0.1 K/cumm [facility] Comment:Testing performed by : [address], [place]., [address] Lymphocyte abs 1.6 0.8 - 3.3 K/cumm [facility] Comment:Testing performed by : [address], [place]., [address] Monocyte abs 0.7 0.2 - 0.8 K/cumm [facility] Comment:Testing performed by : [address] [address] Eosinophil abs 0.4 0.0 - 0.5 K/cumm [facility] Comment:Testing performed by : [address] [address] Basophil abs 0.1 0.0 - 0.1 K/cumm [facility] Comment:Testing performed by : [address] [address] Neutrophil pct 71.5 % [facility] Comment: Interpretive Data Percent cell count reference ranges are not reported, since discordance with absolute values may lead to misinterpretation of CBC data. Current Interpretive Data was last revised on 2017. Testing performed by: [address] [address] Imm gran pct 0.6 % [facility] Comment: Interpretive Data Percent cell count reference ranges are not reported, since discordance with absolute values may lead to misinterpretation of CBC data. Current Interpretive Data was last revised on 2017. Testing performed by: [address] [address] Lymphocyte pct 16.6 % [facility] Comment: Interpretive Data Percent cell count reference ranges are not reported, since discordance with absolute values may lead to misinterpretation of CBC data. Current Interpretive Data was last revised on 2017. Testing performed by: [address] [address] Monocyte pct 7.0 % [facility] Comment: Interpretive Data Percent cell count reference ranges are not reported, since discordance with absolute values may lead to misinterpretation of CBC data. Current Interpretive Data was last revised on 2017. Testing performed by: [address] [address] Eosinophil pct 3.6 % [facility] Comment: Interpretive Data Percent cell count reference ranges are not reported, since discordance with absolute values may lead to misinterpretation of CBC data. Current Interpretive Data was last revised on 2017. Testing performed by: [address] [address] Basophil pct 0.7 % [facility] Comment: Interpretive Data Percent cell count reference ranges are not reported, since discordance with absolute values may lead to misinterpretation of CBC data. Current Interpretive Data was last revised on 2017. Testing performed by: [address] [address] Blood 05/19/2024 1:04 PM ACCOUNTANT BUDGET 05/19/2024 1:07 PM ACCOUNTANT BUDGET us Cyrus Gottlieb MD PhD LAB BLOOD ORDERABLES Final Result [facility] [address] [facility] Department [place] [address] * (ABNORMAL) CBC with auto differential (05/19/2024 1:04 PM ACCOUNTANT BUDGET) WBC 9.8 3.8 - 9.9 K/cumm Comment:Testing performed by : [address] [address] Hgb 13.7 13.0 - 17.5 g/dL [facility] Comment:Testing performed by : [address] [address] Hct 40.5 38.9 - 50.3 % [facility] Comment:Testing performed by : [address] [address] Plt 233 150 - 400 K/cumm [facility] Comment:Testing performed by : [address] [address] MPV 9.0(L) 9.1 - 12.3 fL [facility] Comment:Testing performed by : [address] [address] RBC 4.59 4.30 - 5.80 M/cumm [facility] Comment:Testing performed by : [address] [address] MCV 88.2 81.3 - 96.4 fL [facility] Comment:Testing performed by : [address] [address] MCH 29.8 27.1 - 33.3 pg [facility] Comment:Testing performed by : [address] [address] MCHC 33.8 32.3 - 35.7 g/dL [facility] Comment:Testing performed by : [address] [address] RDW CV 15.3(H) 11.1 - 14.9 % [facility] Comment:Testing performed by : [address] [address] RDW SD 49.5(H) 35.7 - 48.1 fL [facility] Comment:Testing performed by : [address] [address] NRBC abs 0.00 0.00 - 0.01 K/cumm [facility] Comment:Testing performed by : [address] [address] Blood 05/19/2024 1:04 PM ACCOUNTANT BUDGET 05/19/2024 1:07 PM ACCOUNTANT BUDGET us Cyrus Gottlieb MD PhD LAB BLOOD ORDERABLES Final Result [facility] [address] [facility] Department [place] [address] * Comprehensive metabolic panel (05/19/2024 1:04 PM ACCOUNTANT BUDGET) Pathologist [facility] Sodium 138 135 - 145 mmol/L Comment:Testing performed by : [address] [address] Potassium, pl 4.4 3.3 - 4.9 mmol/L [facility] Comment:Testing performed by : [address], [place]., [address] Chloride 101 97 - 110 mmol/L [facility] Comment:Testing performed by : [address], [place]., [address] CO2 27 22 - 32 mmol/L [facility] Comment:Testing performed by : [address], [place]., [address] Anion gap 10 2 - 15 mmol/L [facility] Comment:Testing performed by : [address], [place]., [address] BUN 16 6 - 25 mg/dL [facility] Comment:Testing performed by : [address], [place]., [address] Creatinine 0.80 0.80 - 1.30 mg/dL [facility] Comment:Testing performed by : [address] [address] Glucose 90 70 - 199 mg/dL [facility] Comment: Interpretive Data Fasting glucose >/= 126 [...] classification and Diagnosis of Diabetes Diabetes Care 202; 46: S19-S40. Current interpretive data was last revised 2022. Testing performed by: [address] [address] Calcium 9.2 8.5 - 10.3 mg/dL [facility] Comment:Testing performed by : [address] [address] Bilirubin, total 0.3 0.1 - 1.2 mg/dL [facility] Comment:Testing performed by : [address] [address] Protein, pl 7.2 6.5 - 8.5 g/dL [facility] Comment:Testing performed by : [facility], [address] [place] [address]., [address] Albumin 4.3 3.5 - 5.0 g/dL [facility] Comment:Testing performed by : [address] [address] Alk phos 113 40 - 130 Units/L [facility] Comment:Testing performed by : [address] [address] ALT 27 7 - 55 Units/L [facility] Comment:Testing performed by : [address] [address] AST 23 10 - 50 Units/L [facility] Comment:Testing performed by : [address] [address] Blood 05/19/2024 1:04 PM ACCOUNTANT BUDGET 05/19/2024 1:07 PM ACCOUNTANT BUDGET Cyrus Gottlieb MD PhD LAB BLOOD ORDERABLES Final Result [facility] [address] [facility] Department [place] [address] * TRANSTHORACIC ECHO (TTE) COMPLETE W DOPPLER/CF [...] ? : :Referring Physician: HEATHER, ?: :CYRUS MCKEON ?: :Performed By: Britney ?: :EDGARDO Cardenas ?: + ----- --------+ Procedure A two-dimensional [...] systole: 3.0 mmHg Electronically signed by: Bharathi Jonhson MD 05/14/2024 10:00 AM Procedure Note Bharathi Johnson MD - 05/14/2024 Adult Echocardiogram + ----- --------+ :Name: SEFERINO RODRIGUEZ JR.Study Date: 05/14/2024 Status:MHE : : Patient [facility]^^^MHEHeight: 67in : : Weight:200 lbBP: [...] nal Result from Last 3 Months Insurance [employer] [place] [employer] [place] Advance Directives For more information, please contact: [phone] * Full Code (Latest Code Status on File) Date Activated Date Inactivated Comments 04/01/2024 11:35 AM 04/02/2024 5:04 AM * Full Code Date Activated Date Inactivated Comments 08/09/2023 11:38 AM 08/10/2023 5:09 AM * Full Code Date Activated Date Inactivated Comments 07/16/2023 12:19 PM 07/21/2023 2:39 PM Care Teams Requirements Engineer Relationship Specialty Start Date End Date Sharmin Polanco MD [address] [place] [address] PCP - General 09/25/17 Chico Magaña MD [address] [place], [place] [id number] Referring Physician Thoracic Surgery 06/28/23 Cyrus Gottlieb MD PhD [address] [address] MEDICAL ONCOLOGY, [address] [address] Medical Oncologist/Button Station Worker Medical Oncology 06/28/23
--- OUTSIDE RECORDS SUMMARY | 2024-08-12 16:33 | XMS_ITS ---
Author Organization [place] [id number] [facility] Address [address] [place] [address] Care Team Providers Care Rn Clinical Name Role Phone Sharmin Polanco MD Primary Care Provider Chico Magaña MD Unavailable Emeka Gottlieb MD PhD Unavailable Active Problems Problem Noted Date Diagnosed Date COPD (chronic obstructive pulmonary disease) 09/2023 Assessment & Plan (07/17/2023 8:39 AM TAR HEATER): - add long acting bronchodilator inhaler - add albuterol PRN Acute pain 07/16/2023 Assessment & Plan (07/20/2023 10:43 AM TAR HEATER): - APS removed thoracic epidural - multimodal pain regimen: Tylenol, Nan, Robaxin, PRN oxycodone 5 mg q4h and IV dilaudid for breakthrough Current smoker 07/16/2023 Assessment & Plan (07/16/2023 2:58 PM TAR HEATER): - Smoking cessation education - nicotine patch if needed - secretion management Malignant neoplasm of hilus of left lung 023 Cancer Staging:Clinical stage from 07/30/2023:Stage IIB(cT2a, cN1, cM0) - Signed by Emeka Gottlieb MD PhD on 07/30/2023 Assessment & Plan (07/20/2023 10:29 AM TAR HEATER): Left hilar mass. S/p Left thoracotomy, left upper lobectomy, PA plasty on 07/16 - Chest tube removed, follow up post-pull CXR - encourage IS - ADAT - bowel regimen - DVT PPX: daily lovenox, SCDs - PT to eval and treat Lung mass 06/12/2023 Current Oncology Plans IV Maintenance Therapy Plan* Plan Start Date:12/03/2023 Plan Provider:Emeka Gottlieb MD PhD Linked Problems Malignant neoplasm of hilus of left lung (HCC) Treatment Medications No medications scheduled. Past Plans Oncology Chemotherapy Treatment Plan Name Start Date Discontinue Date Treatment Medications Discontinue Reason Plan Provider Cycles atezolizumab 21 Day Cycles 4 02/12/2024 atezolizumab (TECENTRIQ)atez olizumab (TECENTRIQ) IVPB Patient Preference Emeka Gottlieb MD PhD 3 of 6 cycles started nab-PACLItaxel (D1, D8) / CARBOplatin (D1) 21 Day Cycles - Non-Small Cell Lung 08/20/2023 10/29/2023 albumin-bound PACLItaxel (ABRAXANE)CARBO platin (PARAPLATIN)CAR BOplatin (PARAPLATIN) IVPB in 250 mLPACLItaxel (TAXOL) IVPB in 500 mL Orders Emeka Gottlieb MD PhD 3 of 4 cycles started Radiation Treatments * No radiation treatments are documented for this patient in [facility]. Treatments may have been administered in another system. Lifetime Dose Tracking * Chemical Lifetime Dose Automatic Entry Manual Entr y Fluoro Time 0.4 minutes 0.4 minutes 0 minutes Air kerma at the reference point (Ka,r) 1 mGy 1 mGy 0 mGy Resolved Problems Problem Noted Date Diagnosed Date Resolved Date Hyponatremia 07/18/2023 07/20/2023 Assessment & Plan (07/18/2023 8:43 AM TAR HEATER): - free water restrict , 1 L/day - monitor
[2024-08-12 16:44] LABS: Alanine Aminotransferase 51 U/L (16-63); Albumin Level 4.3 g/dL (3.4-5.0); Alkaline Phosphatase 126 U/L (46-116); Anion Gap 9 mmol/L (4-12); Aspartate Amino Transferase 24 U/L (15-37); Bilirubin,Total 0.5 mg/dL (0.00-1.00); Blood Urea Nitrogen 14 mg/dL (7-18); Calcium 9.4 mg/dL (8.5-10.1); Carbon Dioxide 28 mmol/L (21-32); Chloride 98 mmol/L (98-108); Estimated Glomerular Filt Rate > 60; Glucose 92 mg/dL (70-99); Osmolality Calculated 280 mOsm/kg (285-295); Potassium 4.5 mmol/L (3.5-5.1); Prostate Specific Antigen 3.3 ng/mL (< OR = 4.0); Sodium 135 mmol/L (136-145); Total Protein 7.7 g/dL (6.4-8.2)
[2024-08-12 17:22] LABS: RSV RNA, RT-PCR Negative (Negative)
== END 2024-08-12 15:48 | disposition home or self-care (01) ==
PROVIDERS: PCP Internal Medicine; Visit Provider Internal Medicine
DX: J44.1 Chronic obstructive pulmonary disease with (acute) exacerbation (principal); Z12.5 Encounter for screening for malignant neoplasm of prostate
CPT/HCPCS: 36415; 71046; 80053; 84153; 85025; 87634; G0103

== ENCOUNTER 2024-11-13 14:58 | Outpatient (CLI) | payer BC, SELFPAY ==
--- NOTE | ~2024-11-13 | US_ITS ---
BILATERAL LOWER EXTREMITY VENOUS ULTRASOUND Ordering provider: Sharmin Polanco MD History: . +DDIMER//SOB/BL LEG SWELLING . Comparison: None. FINDINGS: RIGHT LOWER EXTREMITY VEINS: --COMMON FEMORAL: Patent and free of thrombus. Normal compressibility, phasic flow and augmentation. --PROXIMAL SUPERFICIAL FEMORAL: Patent and free of thrombus. Normal compressibility, phasic flow and augmentation. --DISTAL SUPERFICIAL FEMORAL: Patent and free of thrombus. Normal compressibility, phasic flow and au gmentation. --POPLITEAL: Patent and free of thrombus. Normal compressibility, phasic flow and augmentation. --POSTERIOR TIBIAL: Patent and free of thrombus. Normal compressibility, phasic flow and augmentation . LEFT LOWER EXTREMITY VEINS: --COMMON FEMORAL: Patent and free of thrombus. Normal compressibility, phasic flow and augmentation. --PROXIMAL SUPERFICIAL FEMORAL: Patent and free of thrombus. Normal compressibility, phasic flow and augmentation. --DISTAL SUPERFICIAL FEMORAL: Patent and free of thrombus. Normal compressibility, phasic flow and au gmentation. --POPLITEAL: Patent and free of thrombus. Normal compressibility, phasic flow and augmentation. --POSTERIOR TIBIAL: Patent and free of thrombus. Normal compressibility, phasic flow and augmentation . IMPRESSION: Negative bilateral lower extremity venous US. No deep vein thrombosis. Reviewed, dictated and finalized at location A.
--- OUTSIDE RECORDS SUMMARY | 2024-11-14 14:46 | XMS_ITS ---
Author Organization [facility] [address] [facility] Address [address] [place] [address] Care Team Providers Care Metallic Yarn Slitting Machine Operator Name Role Phone Sharmin Polanco MD Primary Care Provider Chico Magaña MD Unavailable Emeka Gottlieb MD PhD Unavailable Active Problems Problem Noted Date Diagnosed Date COPD (chronic obstructive pulmonary disease) 09/2023 Assessment & Plan (07/17/2023 8:39 AM EXTRACTOR OPERATOR SOLVENT PROCESS): - add long acting bronchodilator inhaler - add albuterol PRN Acute pain 07/16/2023 Assessment & Plan (07/20/2023 10:43 AM EXTRACTOR OPERATOR SOLVENT PROCESS): - APS removed thoracic epidural - multimodal pain regimen: Tylenol, Nan, Robaxin, PRN oxycodone 5 mg q4h and IV dilaudid for breakthrough Current smoker 07/16/2023 Assessment & Plan (07/16/2023 2:58 PM EXTRACTOR OPERATOR SOLVENT PROCESS): - Smoking cessation education - nicotine patch if needed - secretion management Malignant neoplasm of hilus of left lung 023 Cancer Staging:Clinical stage from 07/30/2023:Stage IIB(cT2a, cN1, cM0) - Signed by Emeka Gottlieb MD PhD on 07/30/2023 Assessment & Plan (07/20/2023 10:29 AM EXTRACTOR OPERATOR SOLVENT PROCESS): Left hilar mass. S/p Left thoracotomy, left upper lobectomy, PA plasty on 07/16 - Chest tube removed, follow up post-pull CXR - encourage IS - ADAT - bowel regimen - DVT PPX: daily lovenox, SCDs - PT to eval and treat Lung mass 06/12/2023 Current Treatment and Therapy Plans IV Maintenance Therapy Plan* Plan Start Date:12/03/2023 Plan Provider:Emeka Gottlieb MD PhD Linked Problems Malignant neoplasm of hilus of left lung (HCC) Treatment Medications No medications scheduled. Past Treatment and Therapy Plans Oncology Chemotherapy Treatment Plan Name Start [...] MD PhD 3 of 4 cycles started Lifetime Dose Tracking * Chemical Lifetime Dose Automatic Entry Manual Entr y Fluoro Time 0.4 minutes 0.4 minutes 0 minutes Air kerma at the reference point (Ka,r) 1 mGy 1 mGy 0 mGy Resolved Problems Problem Noted Date Diagnosed Date Resolved Date Hyponatremia 07/18/2023 07/20/2023 Assessment & Plan (07/18/2023 8:43 AM EXTRACTOR OPERATOR SOLVENT PROCESS): - free water restrict , 1 L/day - monitor
--- OUTSIDE RECORDS SUMMARY | 2024-11-14 14:46 | XMS_ITS | Referral Summary ---
Author Organization [facility] [address] [facility] Address [address] [place] [address] Care Team Providers Care Roll Edge Machine Operator Name Role Phone Sharmin Polanco MD Primary Care Provider Chico Magaña MD Unavailable Emeka Gottlieb MD PhD Unavailable Encounters Date Type Department Care Team Description 11/10/2024 Orders Only [facility] Oncology [address] [place] [address] [address] [place] [address] Angie Nava, RN Malignant neoplasm of hilus of left lung (HCC) (Primary Dx) 09/01/2024 11:15 AM APPRENTICE EMBALMER Office Visit [facility] Oncology [address] [place] [address] [address] [place] [address] Emeka Gottlieb MD PhD Malignant neoplasm of hilus of left lung (HCC) 08/31/2024 Telephone [facility] Oncology [address] [place] [address] [address] [place] [address] Kim Blum, [facility] 08/25/2024 3:39 PM APPRENTICE EMBALMER - 08/25/2024 11:59 PM APPRENTICE EMBALMER Hospital Encounter [facility] [address] [place] [address] Malignant neoplasm of hilus of left lung (HCC) Discharge Disposition: Discharge to home or [...] with device Inhale 1 puff daily Active meloxicam (MOBIC) 7.5 mg tablet Take 1 tablet (7.5 mg total) by mouth daily 30 tablet 09/01/2024 Active Active Problems Problem Noted Date Diagnosed Date COPD (chronic obstructive pulmonary disease) 09/2023 Assessment & Plan (07/17/2023 8:39 AM APPRENTICE EMBALMER): - add long acting bronchodilator inhaler - add albuterol PRN Acute pain 07/16/2023 Assessment & Plan (07/20/2023 10:43 AM APPRENTICE EMBALMER): - APS removed thoracic epidural - multimodal pain regimen: Tylenol, Nan, Robaxin, PRN oxycodone 5 mg q4h and IV dilaudid for breakthrough Current smoker 07/16/2023 Assessment & Plan (07/16/2023 2:58 PM APPRENTICE EMBALMER): - Smoking cessation education - nicotine patch if needed - secretion management Malignant neoplasm of hilus of left lung 023 Cancer Staging:Clinical stage from 07/30/2023:Stage IIB(cT2a, cN1, cM0) - Signed by Emeka Gottlieb MD PhD on 07/30/2023 Assessment & Plan (07/20/2023 10:29 AM APPRENTICE EMBALMER): Left hilar mass. S/p Left thoracotomy, left upper lobectomy, PA plasty on 07/16 - Chest tube removed, follow up post-pull CXR - encourage IS - ADAT - bowel regimen - DVT PPX: daily lovenox, SCDs - PT to eval and treat Lung mass 06/12/2023 Resolved Problems Problem Noted Date Diagnosed Date Resolved Date Hyponatremia 07/18/2023 07/20/2023 Assessment & Plan (07/18/2023 8:43 AM APPRENTICE EMBALMER): - free water restrict , 1 L/day - monitor Social History Tobacco Use Types Packs/Day Years Used Date Smoking Tobacco: Former Cigarettes 0.1 49 0 07/16/1974 - 07/16/2023 Smokeless Tobacco: Never Tobacco Cessation:Counseling Given: Not Answered Comments:Has cut down to 1 pack a day(from 2) [facility] Utilities Answer Date Recorded In the past 12 months has th e electric, gas, oil, or water company threatened to shut off services in your [...] week 07/19/2023 How often do you attend chur ch or christian services? More than 4 times per year 07/19/2023 Do you belong to any clubs o r organizations such as synagogue groups, unions, fraternal or athletic groups, or school groups? No 07/19/2023 How often do you attend meet ings of the clubs or organizations you belong to? Never 07/19/2023 Are you , , di vorced, , never , or living with a partner? 07/19/2023 AUDIT-C Answer Date Recorded Frequency of Alcohol Consumption Not on file 09/01/2024 Q2: How many drinks containi ng alcohol do you have on a typical day when you are drinking? Patient does not drink Frequency of Binge Drinking Not on file 08/15 Overall Financial Resource Strain (CARDIA) Answe r [...] place to sleep or slept in a correction (including now)? No 07/19/2023 Personal Safety Answer Date Recorded Have you ever been in or are you currently in a harmful physical or emotional relationship or is someone making you feel afraid or unsafe? Denies 04/01/2024 Sex and Gender Information Value Date Recorded Sex Assigned at Not on file Legal Sex Male 8:54 AM APPRENTICE EMBALMER Gender Identity Male 06/18/2023 10:47 PM APPRENTICE EMBALMER Sexual Orientation Straight 06/18/2023 10 :47 PM APPRENTICE EMBALMER Last Filed Vital Signs Vital Sign Reading Time Taken Comments Blood Pressure 120/80 09/01/2024 11:17 AM APPRENTICE EMBALMER Pulse 75 09/01/2024 11:17 AM APPRENTICE EMBALMER Temperature 36.6 C (97.8 F) 09/01/2024 11:17 AM APPRENTICE EMBALMER Respiratory Rate 18 09/01/2024 11:17 AM APPRENTICE EMBALMER Oxygen Saturation 97% 09/01/2024 11:17 AM APPRENTICE EMBALMER Inhaled Oxygen Concentration - - Weight 91.3 kg (201 lb 3.2 oz) 09/01/2024 11:17 AM APPRENTICE EMBALMER Height 170.2 cm (5' 7 ) 12/03/2023 10:14 AM CDT Body Mass Index 31.51 12/03/2023 10:14 AM CDT Plan of Treatment Not on file Medical Devices Implanted Type Area Biological Science Technician Fish Device Identifier Shelf Expiration Date Model / Serial / Lot [employer] Xcela Power Port 8fr [id number] - [id number] Implanted:Qty: 1 on 08/09/2023 at [facility] [employer] 03/17/2028 [id number] / / [id number] Procedures Procedure Name Priority Date/Time Associated Diagnosis Comments CT CHEST ABDOMEN W CONTRAST Schedule Routine, Read Routine (OP Routine) 08/25/2024 4:04 PM APPRENTICE EMBALMER Malignant neoplasm of hilus of left lung (HCC) POCT CREATININE FOR CONTRAST EVALUATION Routine 08/25/2024 4:01 PM APPRENTICE EMBALMER from Last 3 Months Results * CT Chest Abdomen W Contrast (08/25/2024 4:04 PM APPRENTICE EMBALMER) Anatomical Region Laterality Modality Body N/A Computed Tomogra phy 08/27/2024 8:5 8 PM APPRENTICE EMBALMER Narrative 08/27/2024 9:05 PM APPRENTICE EMBALMER EXAM DESCRIPTION: CT CHEST ABDOMEN W CONTRAST REASON FOR STUDY: restaging lung cancer Restaging lung cancer, pt reports no new complaints TECHNIQUE: CT scan of the chest and abdomen performed with intravenous and without oral contrast using helical scanning technique with dynamic intravenous contrast injection. Reconstructed coronal and sagittal MPR images reviewed. All images stored on PACS. Automated exposure control was used as a dose optimization technique for this examination. CONTRAST TYPE/DOSE: 100mL of IOVERSOL 350 MG IODINE/ML INTRAVENOUS SYRINGE was injected via the intravenous COMPARISON: 03/10/2024 REFERENCE: Per ACR white paper recommendations, unless otherwise specified no follow-up imaging is recommended for incidental renal and adrenal lesions per consensus recommendations based on imaging criteria. Further lab evaluation could be pursued based on clinical findings. FINDINGS: LUNGS: Mild paraseptal emphysema. No concerning abnormality identified. Trachea and major airways patent. HEART/MEDIASTINUM/TOMI: Heart size normal. Mild coronary artery calcification. No enlarged lymph node. Thoracic inlet unremarkable. CHEST MSK: Moderate multilevel disc disease. Old left posterior rib defects. CHEST WALL: Unremarkable. LIVER/BILIARY: Liver unremarkable. Biliary tree normal in caliber. GALLBLADDER: Normal. SPLEEN: Normal. PANCREAS: Mild atrophy. ADRENAL GLANDS: Normal. KIDNEYS/URINARY TRACT: Right renal cyst. Ureters unremarkable. GI: Stomach and included bowel unremarkable. OTHER ABDOMINAL/PELVIS: No enlarged lymph node or free fluid. Moderate diffuse vascular calcification. MSK: Chronic lumbar deformities. BODY WALL: Unremarkable. IMPRESSION: No evidence of active malignancy. Chronic findings as above. THIS IS AN ELECTRONICALLY VERIFIED FINAL REPORT 08/27/2024 9:05 PM - Electronically signed by Shant Miramontes M.D. AR: DREA Report ID: [id number] Reading Location: [id number] Procedure Note Shant Miramontes MD - 08/27/2024 EXAM DESCRIPTION: CT CHEST ABDOMEN W CONTRAST REASON FOR STUDY: restaging lung cancer Restaging lung cancer, pt reports no new complaints TECHNIQUE: CT scan of the chest and abdomen performed with intravenousand without oral contrast using helical scanning technique with dynamic intravenous contrast injection. Reconstructed coronal and sagittal MPRimages reviewed. All images stored on PACS. Automated exposure control wasused as a dose optimization technique for this examination. CONTRAST TYPE/DOSE: 100mL of IOVERSOL 350 MG IODINE/ML INTRAVENOUSSYRINGE was injected via the intravenous COMPARISON: 03/10/2024 REFERENCE: Per ACR white paper recommendations, unless otherwise specifiedno follow-up imaging is recommended for incidental renal and adrenal lesionsper consensus recommendations based on imaging criteria. Further labevaluation could be pursued based on clinical findings. FINDINGS: LUNGS: Mild paraseptal emphysema. No concerning abnormality identified. Trachea and major airways patent. HEART/MEDIASTINUM/TOMI: Heart size normal. Mild coronary artery calcification. No enlarged lymph node. Thoracic inlet unremarkable. CHEST MSK: Moderate multilevel disc disease. Old left posterior ribdefects. CHEST WALL: Unremarkable. LIVER/BILIARY: Liver unremarkable. Biliary tree normal in caliber. GALLBLADDER: Normal. SPLEEN: Normal. PANCREAS: Mild atrophy. ADRENAL GLANDS: Normal. KIDNEYS/URINARY TRACT: Right renal cyst. Ureters unremarkable. GI: Stomach and included bowel unremarkable. OTHER ABDOMINAL/PELVIS: No enlarged lymph node or free fluid. Moderate diffuse vascular calcification. MSK: Chronic lumbar deformities. BODY WALL: Unremarkable. IMPRESSION: No evidence of active malignancy. Chronic findings as above. THIS IS AN ELECTRONICALLY VERIFIED FINAL REPORT 08/27/2024 9:05 PM - Electronically signed by Shant Miramontes M.D. AR: DREA Report ID: [id number] Reading Location: [place] [address] [place] Emeka Gottlieb MD PhD IMG CT PROCEDURES Fin al Result * POCT creatinine for contrast evaluation (08/25/2024 4:01 PM APPRENTICE EMBALMER) Creatinine POC 0.90 0.80 - 1.30 mg/dL Comment:Testing performed by : [facility], [address] [place] [address]., [id number] Blood 08/25/2024 4:01 PM APPRENTICE EMBALMER 08/25/2024 4:01 PM APPRENTICE EMBALMER us Emeka Gottlieb MD PhD POINT OF CARE TEST OR DERABLES Final Result Performing Organization Address City/State/ZIP Co tx Phone Number [facility] [address] [facility] Department [place] [address] from Last 3 Months Insurance [facility] Advance Directives For more information, please contact: [phone] * Full Code (Latest Code Status on File) Date Activated Date Inactivated Comments 04/01/2024 11:35 AM 04/02/2024 5:04 AM * Full Code Date Activated Date Inactivated Comments 08/09/2023 11:38 AM 08/10/2023 5:09 AM * Full Code Date Activated Date Inactivated Comments 07/16/2023 12:19 PM 07/21/2023 2:39 PM Care Teams Roll Edge Machine Operator Relationship Specialty Start Date End Date Sharmin Polanco MD [address] [place] [address] PCP - General 09/25/17 Chico Magaña MD [address] [place] [address] Referring Physician Thoracic Surgery 06/28/23 Emeka Gottlieb MD PhD [address] [address] MEDICAL ONCOLOGY, [address] [address] Medical Oncologist/Division Road Supervisor Medical Oncology 06/28/23
--- OUTSIDE RECORDS SUMMARY | 2024-11-14 14:46 | XMS_ITS | Clinical Summary ---
Author Organization [facility] [address] Address [address] [place] [address] Care Team Providers Care Radio Announcer Name Role Phone Sharmin Polanco MD Primary Care Provider Chico Magaña MD Unavailable Emeka Gottlieb MD PhD Unavailable Allergies Active Allergy [...] 09/2023 Assessment & Plan (07/17/2023 8:39 AM SPEED READING TEACHER): - add long acting bronchodilator inhaler - add albuterol PRN Acute pain 07/16/2023 Assessment & Plan (07/20/2023 10:43 AM SPEED READING TEACHER): - APS removed thoracic epidural - multimodal pain regimen: Tylenol, Nan, Robaxin, PRN oxycodone 5 mg q4h and IV dilaudid for breakthrough Current smoker 07/16/2023 Assessment & Plan (07/16/2023 2:58 PM SPEED READING TEACHER): - Smoking cessation education - nicotine patch if needed - secretion management Malignant neoplasm of hilus of left lung 023 Cancer Staging:Clinical stage from 07/30/2023:Stage IIB(cT2a, cN1, cM0) - Signed by Emeka Gottlieb MD PhD on 07/30/2023 Assessment & Plan (07/20/2023 10:29 AM SPEED READING TEACHER): Left hilar mass. S/p Left thoracotomy, left upper lobectomy, PA plasty on 07/16 - Chest tube removed, follow up post-pull CXR - encourage IS - ADAT - bowel regimen - DVT PPX: daily lovenox, SCDs - PT to eval and treat Lung mass 06/12/2023 Resolved Problems Problem Noted Date Diagnosed Date Resolved Date Hyponatremia 07/18/2023 07/20/2023 Assessment & Plan (07/18/2023 8:43 AM SPEED READING TEACHER): - free water restrict , 1 L/day - monitor Encounters Date Type Department Care Team Description 11/10/2024 Orders Only [facility] Oncology [facility] [address] [place] [address] Angie Nava, RN Malignant neoplasm of hilus of left lung (HCC) (Primary Dx) 09/01/2024 11:15 AM SPEED READING TEACHER Office Visit [facility] Oncology [address] [facility] [address] [place] [address] Emeka Gottlieb MD PhD Malignant neoplasm of hilus of left lung (HCC) 08/31/2024 Telephone [facility] Oncology [address] [facility] [address] [place] [address] Kim Blum, [facility] 08/25/2024 3:39 PM SPEED READING TEACHER - 08/25/2024 11:59 PM SPEED READING TEACHER Hospital Encounter [facility] [address] [place], [place] [id number] Malignant neoplasm of hilus of left lung [...] stenosis Knee pain Actinic keratosis Hemorrhoids Sacroiliitis Personal history of colonic polyps Panniculitis Restless leg syndrome Anxiety PONV (postoperative nausea and vomiting) Cancer (HCC) Lung disease Family History Medical History [...] down to 1 pack a day(from 2) [facility] Utilities Answer Date Recorded In the past 12 months has e electric, gas, oil, or water company [...] often do you attend chur ch or episcopalian services? More than 4 times per year 07/19/2023 Do you belong to any clubs o r organizations such as orthodoxy groups, unions, fraternal or athletic groups, or [...] place to sleep or slept in a intermediate (including now)? No 07/19/2023 Personal Safety Answer Date Recorded Have you ever been in or are you currently in a harmful physical or emotional relationship or is someone making you feel afraid or unsafe? Denies 04/01/2024 Sex and Gender Information Value Date Recorded Sex Assigned at Not on file Legal Sex Male 8:54 AM SPEED READING TEACHER Gender Identity Male 06/18/2023 10:47 PM SPEED READING TEACHER Sexual Orientation Straight 06/18/2023 10 :47 PM SPEED READING TEACHER Obstetrics History Last Filed Vital Signs Vital Sign Reading Time Taken Comments Blood Pressure 120/80 09/01/2024 11:17 AM SPEED READING TEACHER Pulse 75 09/01/2024 11:17 AM SPEED READING TEACHER Temperature 36.6 C (97.8 F) 09/01/2024 11:17 AM SPEED READING TEACHER Respiratory Rate 18 09/01/2024 11:17 AM SPEED READING TEACHER Oxygen Saturation 97% 09/01/2024 11:17 AM SPEED READING TEACHER Inhaled Oxygen Concentration - - Weight 91.3 kg (201 lb 3.2 oz) 09/01/2024 11:17 AM SPEED READING TEACHER Height 170.2 cm (5' 7 ) 12/03/2023 10:14 AM CDT Body Mass Index 31.51 12/03/2023 10:14 AM CDT Plan of Treatment Health Maintenance Due Date Last Done Comments Colon Cancer Screening-Colonoscopy 1960 Depression Screening 1960 Hepatitis C Screening 1960 Prostate Cancer Screening-PSA 1960 Hepatitis B Screening 1978 Regular Well Visit/Exam 18-64 1978 Pneumococcal vaccine <65 (1 of 2 - PCV) 1979 Zoster Vaccine (1 of 2) 2010 Covid-19 Vaccine (3 - season) 03/15/202409/2020, 02/24/2021 Influenza Vaccine (Season Ended) 2025 04/27/20 14 DTaP/Tdap/Td Vaccine (3 - Td or Tdap) 08/24/203004/2021, 10/06/2010 Medical Devices Implanted Type Area Consultative Sales Associate Device Identifier Shelf Expiration Date Model / Serial / Lot [employer] Xcela Power Port 8fr [id number] - [id number] Implanted:Qty: 1 on 08/09/2023 at [facility] [employer] 03/17/2028 [id number] / / [id number] Procedures Procedure Name Priority Date/Time Associated Diagnosis Comments CT CHEST ABDOMEN W CONTRAST Schedule Routine, Read Routine (OP Routine) 08/25/2024 4:04 PM SPEED READING TEACHER Malignant neoplasm of hilus of left lung (HCC) POCT CREATININE FOR CONTRAST EVALUATION Routine 08/25/2024 4:01 PM SPEED READING TEACHER from Last 3 Months Results * CT Chest Abdomen W Contrast (08/25/2024 4:04 PM SPEED READING TEACHER) Anatomical Region Laterality Modality Body N/A Computed Tomogra phy 08/27/2024 8:58 PM SPEED READING TEACHER Narrative 08/27/2024 9:05 PM SPEED READING TEACHER EXAM DESCRIPTION: CT CHEST ABDOMEN W CONTRAST [...] Shant Miramontes M.D. AR: DREA Report ID: [id number] Reading Location: [id number] Procedure Note Shant Miramontes MD - 08/27/2024 [...] Shant Miramontes M.D. AR: DREA Report ID: [id number] Reading Location: [place] [address] [place] Emeka Gottlieb MD PhD IMG CT PROCEDURES Fin al Result * POCT creatinine for contrast evaluation (08/25/2024 4:01 PM SPEED READING TEACHER) Creatinine POC 0.90 0.80 - 1.30 mg/dL Comment:Testing performed by : [facility], [address] [place] [address]., [id number] Blood 08/25/2024 4:01 PM SPEED READING TEACHER 08/25/2024 4:01 PM SPEED READING TEACHER us Emeka Gottlieb MD PhD POINT OF CARE TEST OR DERABLES Final Result [facility] [address] [facility] Department [place] [address] from Last 3 Months Insurance [employer] [place] [employer] [place] Advance Directives For more information, please contact: [phone] * Full Code (Latest Code Status on File) Date Activated Date Inactivated Comments 04/01/2024 11:35 AM 04/02/2024 5:04 AM * Full Code Date Activated Date Inactivated Comments 08/09/2023 11:38 AM 08/10/2023 5:09 AM * Full Code Date Activated Date Inactivated Comments 07/16/2023 12:19 PM 07/21/2023 2:39 PM Care Teams Radio Announcer Relationship Specialty Start Date End Date Sharmin Polanco MD [address] [place] [address] PCP - General 09/25/17 Chico Magaña MD [address] [place] [address] Referring Physician Thoracic Surgery 06/28/23 Emeka Gottlieb MD PhD [address] [place] [address] MEDICAL ONCOLOGY, [facility] [address] [place] [address] Medical Oncologist/Lock Fitter Medical Oncology 06/28/23
== END 2024-11-13 14:59 | disposition home or self-care (01) ==
LOC: CHSIMG 14:59
PROVIDERS: PCP Internal Medicine; Visit Provider Internal Medicine
DX: R79.1 Abnormal coagulation profile (principal); R06.02 Shortness of breath; R22.43 Localized swelling, mass and lump, lower limb, bilateral
CPT/HCPCS: 93970

== ENCOUNTER 2025-02-01 07:47 | Outpatient (CLI) | payer BC, SELFPAY ==
--- OUTSIDE RECORDS SUMMARY | 2025-02-01 07:50 | XMS_ITS | Referral Summary ---
Author Organization [facility] [address] [facility] Address [address] [place] [address] Care Team Providers Care Cross Tie Maker Name Role Phone Sharmin Polanco MD Primary Care Provider Chico Magaña MD Unavailable Emeka Gottlieb MD PhD Unavailable Encounters Date Type Department Care Team Description 01/25/2025 Results Follow-Up [facility] Rheumatology Critical access hospital1 [facility] Medicine 5th [place] [address] [place] [phone] Paolo Prescott MD CRP (acute phase), Erythrocyte sedimentation rate, Cyclic citrul peptide antibody, IgG, Rheumatoid factor 01/22/2025 10:15 AM CDT Lab [facility] [place] - Lab Collection [facility] 6 [place] [address] Arthralgia, unspecified joint 01/22/2025 9:00 AM CDT Office Visit [facility] Rheumatology [address] [facility] Floor 6 [place] [phone] Paolo Prescott MD Arthralgia, unspecified joint (Primary Dx); History of immunotherapy; Mid back pain, chronic; Chronic midline low back pain without sciatica; High risk medication use; Chronic bronchitis, unspecified chronic bronchitis type (HCC); Malignant neoplasm of hilus of left lung (HCC) 12/01/2024 11:15 AM CDT Lab [facility] at [address] [address] Malignant neoplasm of hilus of left lung (HCC) 12/01/2024 11:45 AM CDT Office Visit [facility] Oncology [address] [place] [phone] Emeka Gottlieb MD PhD Malignant neoplasm of hilus of left lung (HCC) (Primary Dx); Arthralgia, unspecified joint 11/24/2024 9:07 AM CDT - 11/24/2024 11:59 PM CDT Hospital Encounter [facility] Medical Office Building [address] [address] Malignant neoplasm of hilus of left lung (HCC); Positive D dimer Discharge Disposition: Discharge to home or self care 11/19/2024 Orders Only [facility] On[facility] [address] [place] [phone] Angie Nava RN Malignant neoplasm of hilus of left lung (HCC) (Primary Dx); Positive D dimer 11/10/2024 Orders Only [facility] [address] [place] [phone] Angie Nava RN Malignant neoplasm of hilus of left lung (HCC) (Primary Dx) from Last 3 Months Allergies Active Allergy Reactions Criticality Noted Date Comments Paclitaxel Shortness of breath,Flushing (skin) High 08/20/2023 Medications HYDROcodone-shorty taminophen (NORCO) 10-325 mg per tablet Take 1 tablet by mouth as needed for pain 06/07/2023 Active omeprazole (PriLOSEC) 40 mg capsule Take 1 capsule (40 mg total) by mouth daily 12/21/2024 Active hydroxychloroqu ine (PLAQUENIL) 200 mg tabletIndicatio ns:inflammatory arthritis Take 2 tablets (400 mg total) by mouth daily 60 tablet 5 01/22/2025 Active Active Problems Problem Noted Date Diagnosed Date COPD (chronic obstructive pulmonary disease) 09/2023 Assessment & Plan (07/17/2023 8:39 AM HOTEL RESERVATIONIST): - add long acting bronchodilator inhaler - add albuterol PRN Acute pain 07/16/2023 Assessment & Plan (07/20/2023 10:43 AM HOTEL RESERVATIONIST): - APS removed thoracic epidural - multimodal pain regimen: Tylenol, Nan, Robaxin, PRN oxycodone 5 mg q4h and IV dilaudid for breakthrough Current smoker 07/16/2023 Assessment & Plan (07/16/2023 2:58 PM HOTEL RESERVATIONIST): - Smoking cessation education - nicotine patch if needed - secretion management Malignant neoplasm of hilus of left lung 023 Cancer Staging:Clinical stage from 07/30/2023:Stage IIB(cT2a, cN1, cM0) - Signed by Emeka Gottlieb MD PhD on 07/30/2023 Assessment & Plan (07/20/2023 10:29 AM HOTEL RESERVATIONIST): Left hilar mass. S/p Left thoracotomy, left upper lobectomy, PA plasty on 07/16 - Chest tube removed, follow up post-pull CXR - encourage IS - ADAT - bowel regimen - DVT PPX: daily lovenox, SCDs - PT to eval and treat Lung mass 06/12/2023 Resolved Problems Problem Noted Date Diagnosed Date Resolved Date Hyponatremia 07/18/2023 07/20/2023 Assessment & Plan (07/18/2023 8:43 AM HOTEL RESERVATIONIST): - free water restrict , 1 L/day - monitor Immunizations Immunization Administration Dates Next Due Influenza, Quadrivalent, Split, Intramuscular Tdap 08/24/2020,10/06/2010 Social History Tobacco Use Types Packs/Day Years Used Date Smoking Tobacco: Former Cigarettes 0.1 49 0 07/16/1974 - 07/16/2023 Smokeless Tobacco: Never Tobacco Cessation:Counseling Given: Not Answered Comments:Has cut down to 1 pack a day(from 2) [facility] Utilities Answer Date Recorded In the past [...] often do you attend chur ch or religion services? More than 4 times per year 07/19/2023 Do you belong to any clubs o r organizations such as tenriism groups, unions, fraternal or athletic groups, or [...] place to sleep or slept in a prison (including now)? No 07/19/2023 Personal Safety Answer Date Recorded Have you ever been in or are you currently in a harmful physical or emotional relationship or is someone making you feel afraid or unsafe? Denies 04/01/2024 Sex and Gender Information Value Date Recorded Sex Assigned at Not on file Legal Sex Male 8:54 AM HOTEL RESERVATIONIST Gender Identity Male 06/18/2023 10:47 PM HOTEL RESERVATIONIST Sexual Orientation Straight 06/18/2023 10 :47 PM HOTEL RESERVATIONIST Last Filed Vital Signs Vital Sign Reading Time Taken Comments Blood Pressure 137/81 01/22/2025 9:03 AM CDT Pulse 67 01/22/2025 9:03 AM CDT Temperature 36.4 C (97.5 F) 01/22/2025 9:03 AM CDT Respiratory Rate 18 01/22/2025 9:03 AM CDT Oxygen Saturation 98% 01/22/2025 9:03 AM CDT Inhaled Oxygen Concentration - - Weight 95.7 kg (211 lb) 01/22/2025 9:03 AM CDT Height 172.7 cm (5' 8) 01/22/2025 9:03 AM CDT Body Mass Index 32.08 01/22/2025 9:03 AM CDT Plan of Treatment Not on file Medical Devices Implanted Type Area Supervisor Mirror Fabrication Device Identifier Shelf Expiration Date Model / Serial / Lot [employer] Xcela Power Port 8fr [id number] - [id number] Implanted:Qty: 1 on 08/09/2023 at [facility] [employer] 03/17/2028 [id number] / / [id number] Procedures Procedure Name Priority Date/Time Associated Diagnosis Comments RHEUMATOID FACTOR Routine 01/22/2025 10: 17 AM CDT Arthralgia, unspecified joint CYCLIC CITRUL PEPTIDE ANTIBODY, IGG Routine 01/22/2025 10:17 AM CDT Arthralgia, unspecified joint ERYTHROCYTE SEDIMENTATION RATE Routine 01/22/2025 10:17 AM CDT Arthralgia, unspecified joint CRP (ACUTE PHASE) Routine 01/22/2025 10: 17 AM CDT Arthralgia, unspecified joint EGFR Routine 12/01/2024 11:07 AM CDT Malignant neoplasm of hilus of left lung (HCC) DIFFERENTIAL AUTO Routine 12/01/2024 11: 07 AM CDT Malignant neoplasm of hilus of left lung (HCC) CBC WITH AUTO DIFFERENTIAL Routine 12/01/2024 11:07 AM CDT Malignant neoplasm of hilus of left lung (HCC) COMPREHENSIVE METABOLIC PANEL Routine 12/01/2024 11:07 AM CDT Malignant neoplasm of hilus of left lung (HCC) CRP, HIGH SENSITIVITY Routine 12/01/2024 11:07 AM CDT Malignant neoplasm of hilus of left lung (HCC) CT CHEST PE W CONTRAST Schedule BRITTANY, Read BRITTANY (Appt Today, Awaiting Results) 11/24/2024 9:40 AM CDT Malignant neoplasm of hilus of left lung (HCC) Positive D dimer POCT CREATININE FOR CONTRAST EVALUATION Routine 11/24/2024 9:37 AM CDT from Last 3 Months Results * Cyclic citrul peptide antibody, IgG (01/22/2025 10:17 AM CDT) CCP Ab <0.5 <=2.9 units/mL Comment: Interpretive data Negative: <3 units/mL Positive: > or equal to 3 units/mL Current interpretive data was last revised on 2016. Blood 01/22/2025 10:1 7 AM CDT 01/22/2025 1:01 PM CDT Paolo Prescott MD LAB BLOOD ORDERABLES Nan l Result Performing Organization Address City/[facility] Co de Phone Number [facility] [employer] [place] [address] * Erythrocyte sedimentation rate (01/22/2025 10:17 AM CDT) Erythrocyte sedimentation rate 9 1 - 20 mm/hr Blood 01/22/2025 10:1 7 AM CDT 01/22/2025 1:01 PM CDT Paolo Prescott MD LAB BLOOD ORDERABLES Nan l Result Performing Organization Address [facility] Co de Phone Number [facility] [employer] [place] [address] * Rheumatoid factor (01/22/2025 10:17 AM CDT) Rheumatoid factor, quant <10.0 0.1 - 15.0 IUnits/mL Blood 01/22/2025 10:1 7 AM CDT 01/22/2025 11:18 AM CDT Paolo Prescott MD LAB BLOOD ORDERABLES Nan l Result Performing Organization Address City/[facility] Co de Phone Number [facility] [employer] [place] [address] * CRP (acute phase) (01/22/2025 10:17 AM CDT) CRP 3.2 <=10.0 mg/L Blood 01/22/2025 10:1 7 AM CDT 01/22/2025 11:18 AM CDT us Paolo Prescott MD LAB BLOOD ORDERABLES Nan l Result [facility] [place] [address] * eGFR (12/01/2024 11:07 AM CDT) eGFR >90 >=60 mL/min/1. 73 m2 Comment: Interpretive Data Reference Interval Normal >/= 90 mL/min/1.73m2 Mildly decreased* 60 - 89 mL/min/1.73m2 Mildly to moderately decreased 45 - 59 mL/min/1.73m2 Moderately to severely decreased 30 - 44 mL/min/1.73m2 Severely decreased 15 - 29 mL/min/1.73m2 Kidney Failure < 15 mL/min/1.73m2 *Relative to young adult level Estimated glomerular [...] was last reviewed 2021. Testing performed by: [address] [address] Blood 12/01/2024 11:0 7 AM CDT 12/01/2024 11:08 AM CDT us Emeka Gottlieb MD PhD LAB BLOOD ORDERABLES Final Result [facility] [address] [facility] Department [place] [address] * (ABNORMAL) Differential, auto (12/01/2024 11:07 AM CDT) Neutrophil abs 5.52 1.50 - 6.50 K/cumm Comment:Testing performed by : [address] [address] Imm gran abs 0.04 0.00 - 0.10 K/cumm [facility] Comment:Testing performed by : [address] [address] Lymphocyte abs 1.89 0.80 - 3.30 K/cumm [facility] Comment:Testing performed by : [address] [address] Monocyte abs 0.73 0.20 - 0.80 K/cumm [facility] Comment:Testing performed by : [address] [address] Eosinophil abs 0.51(H) 0.00 - 0.50 K/cumm [facility] Comment:Testing performed by : [address] [address] Basophil abs 0.09 0.00 - 0.10 K/cumm [facility] Comment:Testing performed by : [address] [address] Neutrophil pct 62.9 % [facility] Comment: Interpretive Data Percent cell count reference ranges are not reported, since discordance with absolute values may lead to misinterpretation of CBC data. Current Interpretive Data was last revised on 2017. Testing performed by: [address] [address] Imm gran pct 0.5 % [facility] Comment: Interpretive Data Percent cell count reference ranges are not reported, since discordance with absolute values may lead to misinterpretation of CBC data. Current Interpretive Data was last revised on 2017. Testing performed by: [address] [address] Lymphocyte pct 21.5 % [facility] Comment: Interpretive Data Percent cell count reference ranges are not reported, since discordance with absolute values may lead to misinterpretation of CBC data. Current Interpretive Data was last revised on 2017. Testing performed by: [address] [address] Monocyte pct 8.3 % [facility] Comment: Interpretive Data Percent cell count reference ranges are not reported, since discordance with absolute values may lead to misinterpretation of CBC data. Current Interpretive Data was last revised on 2017. Testing performed by: [address] [address] Eosinophil pct 5.8 % [facility] Comment: Interpretive Data Percent cell count reference ranges are not reported, since discordance with absolute values may lead to misinterpretation of CBC data. Current Interpretive Data was last revised on 2017. Testing performed by: [address] [address] Basophil pct 1.0 % [facility] Comment: Interpretive Data Percent cell count reference ranges are not reported, since discordance with absolute values may lead to misinterpretation of CBC data. Current Interpretive Data was last revised on 2017. Testing performed by: [address] [address] Blood 12/01/2024 11:0 7 AM CDT 12/01/2024 11:08 AM CDT us Emeka Gottlieb MD PhD LAB BLOOD ORDERABLES Final Result [facility] [address] [facility] Department of Laboratories [place], [place] [id number] * CBC with auto differential (12/01/2024 11:07 AM CDT) WBC 8.78 3.80 - 9.90 K/cumm Comment:Testing performed by : [address] [address] Hgb 13.4 13.0 - 17.5 g/dL [facility] Comment:Testing performed by : [address] [address] Hct 39.3 38.9 - 50.3 % [facility] Comment:Testing performed by : [address] [address] Plt 235 150 - 400 K/cumm [facility] Comment:Testing performed by : [address] [address] MPV 9.5 9.1 - 12.3 fL [facility] Comment:Testing performed by : [address] [address] RBC 4.57 4.30 - 5.80 M/cumm [facility] Comment:Testing performed by : [address] [address] MCV 86.0 81.3 - 96.4 fL [facility] Comment:Testing performed by : [address] [address] MCH 29.3 27.1 - 33.3 pg [facility] Comment:Testing performed by : [address] [address] MCHC 34.1 32.3 - 35.7 g/dL [facility] Comment:Testing performed by : [address] [address] RDW CV 13.9 11.1 - 14.9 % [facility] Comment:Testing performed by : [address] [address] RDW SD 43.5 35.7 - 48.1 fL [facility] Comment:Testing performed by : [address] [address] NRBC abs 0.00 0.00 - 0.01 K/cumm [facility] Comment:Testing performed by : [address] [address] ANC Prelim 5.52 1.50 - 6.50 K/cumm [facility] Comment: Interpretive Data The rapid ANC is a preliminary automated count and may vary from the final ANC (Neut Abs) reported in the WBC differential that follows. Current interpretive data was last revised 2024. Testing performed by: [address] [address] Blood 12/01/2024 11:0 7 AM CDT 12/01/2024 11:08 AM CDT us Emeka Gottlieb MD PhD LAB BLOOD ORDERABLES Final Result [facility] [address] [facility] Department [place] [address] * CRP (cardiac risk) (12/01/2024 11:07 AM CDT) Pathologist [facility] hsCRP 3.10 mg/L Comment: Interpretive data Adult only - values greater than or equal to 10 mg/L are consistent with infection or inflammation. Individuals with evidence of active infection, systemic inflammatory processes, or trauma should not be tested until these conditions have abated. When using HS CRP to assess cardiovascular risk, two measurements should be taken, two weeks apart (averaging results). The CDC/AHA recommended the following HS CRP cut off points (tertiles) for CVD assessment. Adult low risk <1.0 mg/L Average risk 1.0 - 3.0 mg/L High Risk >3.0 mg/L Current interpretive data was last revised on 2018. Testing performed by: [address] [address] Blood 12/01/2024 11:0 7 AM CDT 12/01/2024 11:08 AM CDT us Emeka Gottlieb MD PhD LAB BLOOD ORDERABLES Final Result [facility] [address] [facility] Department [place] [address] * Comprehensive metabolic panel (12/01/2024 11:07 AM CDT) Pathologist [facility] Sodium 136 135 - 145 mmol/L Comment:Testing performed by : [address] [address] Potassium, pl 4.8 3.3 - 4.9 mmol/L [facility] Comment:Testing performed by : [address] [address] Chloride 101 97 - 110 mmol/L [facility] Comment:Testing performed by : [address] [address] CO2 24 22 - 32 mmol/L [facility] Comment:Testing performed by : [address] [address] Anion gap 11 2 - 15 mmol/L [facility] Comment:Testing performed by : [address] [address] BUN 21 6 - 25 mg/dL [facility] Comment:Testing performed by : [address] [address] Creatinine 0.90 0.80 - 1.30 mg/dL [facility] Comment:Testing performed by : [address] [address] Glucose 78 70 - 199 mg/dL [facility] Comment: Interpretive Data Fasting glucose >/= 126 mg/dl is diagnostic for diabetes. Fasting is defined as no caloric intake [...] was last revised 2022. Testing performed by: [address] [address] Calcium 9.4 8.5 - 10.3 mg/dL [facility] Comment:Testing performed by : [address] [address] Bilirubin, total 0.3 0.1 - 1.2 mg/dL [facility] Comment:Testing performed by : [address] [address] Protein, pl 7.3 6.5 - 8.5 g/dL [facility] Comment:Testing performed by : [address] [address] Albumin 4.6 3.5 - 5.0 g/dL [facility] Comment:Testing performed by : [address] [address] Alk phos 113 40 - 130 Units/L [facility] Comment:Testing performed by : [address] [address] ALT 47 7 - 55 Units/L [facility] Comment:Testing performed by : [address] [address] AST 31 10 - 50 Units/L [facility] Comment:Testing performed by : [facility], [address] [facility], [place]., [address] Blood 12/01/2024 11:0 7 AM CDT 12/01/2024 11:08 AM CDT us Emeka Gottlieb MD PhD LAB BLOOD ORDERABLES Final Result [facility] [address] [facility] Department [place] [address] * CT Chest PE (CTA) W Contrast (11/24/2024 9:40 AM CDT) Anatomical Region Laterality Modality Body N/A Computed Tomogra phy 12/01/2024 8:02 AM CDT Addenda Addendum by Man Alonzo DO on 12/01/2024 12:54 PM CDT ADDENDUM: This addendum report supersedes the original report dated There are multiple too small to characterize hypoattenuating lesions in the liver, which are overall grossly similar to multiple prior studies dating back to 11/15/2017. For example, there is a too small to characterize hypoattenuating lesion in the left hepatic dome measuring 0.5 cm (axial image 113). There is a too small to characterize hypoattenuating lesion in the posterior right hepatic dome measuring 0.6 cm (axial image 140). There is a too small to characterize hypoattenuating lesion in the lateral right hepatic lobe measuring 0.5 cm (axial image 148). IMPRESSION: 1. No definite evidence of pulmonary embolus. 2. Redemonstration of postsurgical changes of left upper lobectomy with mild associated volume loss and mild chronic parenchymal scarring/atelectasis, similar to multiple prior studies. No definite evidence of local recurrence or metastatic disease in the chest. 3. Mild emphysematous changes of lungs with scattered mild subsegmental atelectasis and scarring. No definite evidence of focal consolidation. 4. Scattered mild bronchial wall thickening, which is likely related to mild chronic bronchitis/bronchiolitis. 5. Multiple too small to characterize hypoattenuating lesions in the liver, which are overall grossly changed in comparison to multiple prior studies dating back to 11/15/2017, and therefore likely benign. Continued attention on follow-up imaging is recommended as clinically indicated. END OF ADDENDUM REPORT THIS IS AN ELECTRONICALLY VERIFIED FINAL REPORT 12/01/2024 12:54 PM Addendum Electronically signed by Man Alonzo D.O. PS: PS Report ID: [id number] Reading Location: [id number] Narrative 12/01/2024 8:08 AM CDT EXAM DESCRIPTION: CT CHEST PE (CTA) W CONTRAST REASON FOR STUDY: Elevated d dimer; restaging of lung cancer 3 month lung cancer f/u. Cough and sob for 3 days. Elevated d-dimer. TECHNIQUE: CT angiogram of the chest performed with intravenous contrast using helical scanning technique with dynamic intravenous contrast injection. Reconstructed coronal and sagittal MPR images reviewed. All images stored on PACS. 3D MIP images rendered on scanning unit and reviewed at time of interpretation. Automated exposure control was used as a dose optimization technique for this examination. CONTRAST TYPE/DOSE: 80mL of IOVERSOL 350 MG IODINE/ML INTRAVENOUS SYRINGE injected via intravenous COMPARISON: 08/25/2024 FINDINGS: VASCULATURE: There is no definite evidence of a pulmonary embolus. There are atherosclerotic changes of the aorta and coronary vessels. LUNGS: There is mild right apical pleural thickening and scarring. There is no definite evidence of a pneumothorax. There is scattered mild bronchial wall thickening, which is likely related to mild chronic bronchitis/bronchiolitis. There are mild emphysematous changes of lungs with scattered mild subsegmental atelectasis and scarring. There is no definite evidence of a focal consolidation or pleural effusion. There is calcified granuloma in the right lower lobe. There is redemonstration of the postsurgical changes of left upper lobectomy with mild associated volume loss and mild chronic parenchymal scarring/atelectasis, similar to multiple prior studies. There is no definite evidence of local recurrence. There is a stable 0.5 cm pulmonary nodule in the posterior right upper lobe abutting the right major fissure, which is grossly unchanged since 05/03/2022, and therefore likely benign (axial image 52). There is a stable subtle 0.3 cm subpleural pulmonary nodule in the anterolateral right middle lobe, which is grossly unchanged since 05/03/2022, and therefore likely benign (axial image 106). MEDIASTINUM/TOMI: The heart size is upper limits of normal. There is no definite evidence of pericardial effusion. There is no definite evidence of mediastinal, hilar, or axillary lymphadenopathy. There are scattered prominent subcentimeter mediastinal lymph nodes noted with largest measuring 0.8 cm in the paratracheal region, similar to multiple prior studies (axial image 38). There are scattered prominent subcentimeter right hilar lymph nodes noted with largest measuring 0.7 cm, similar to multiple prior studies (axial image 65). CHEST WALL: No masses. No subcutaneous air. HARDWARE/LINES/TUBES: None. UPPER ABDOMEN: There is a small hiatal hernia. The bilateral adrenal glands are grossly stable and unremarkable. There are scattered colonic diverticula noted. There is a 0.3 cm nonobstructing right renal calculus. MUSCULOSKELETAL: There is mild osteopenia. There is a minimal to mild dextroscoliotic curvature of the spine with degenerative changes. OTHER: No significant abnormality. IMPRESSION: No definite evidence of pulmonary embolus. Redemonstration of postsurgical changes of left upper lobectomy with mild associated volume loss and mild chronic parenchymal scarring/atelectasis, similar to multiple prior studies. No definite evidence of local recurrence or metastatic disease in the chest. Mild emphysematous changes of lungs with scattered mild subsegmental atelectasis and scarring. No definite evidence of focal consolidation. Scattered mild bronchial wall thickening, which is likely related to mild chronic bronchitis/bronchiolitis. THIS IS AN ELECTRONICALLY VERIFIED FINAL REPORT 12/01/2024 8:08 AM - Electronically signed by Man Alonzo D.O. PS: PS Report ID: [id number] Reading Location: [id number] Procedure Note Man Alonzo, - 12/01/2024 EXAM DESCRIPTION: CT CHEST PE (CTA) W CONTRAST REASON FOR STUDY: Elevated d dimer; restaging of lung cancer 3 month lung cancer f/u. Cough and sob for 3 days. Elevated d-dimer. TECHNIQUE: CT angiogram of the chest performed with intravenous contrastusing helical scanning technique with dynamic intravenous contrast injection. Reconstructed coronal and sagittal MPR images reviewed. All images storedon PACS. 3D MIP images rendered on scanning unit and reviewed at time of interpretation. Automated exposure control was used as a doseoptimization technique for this examination. CONTRAST TYPE/DOSE: 80mL of IOVERSOL 350 MG IODINE/ML INTRAVENOUSSYRINGE injected via intravenous COMPARISON: 08/25/2024 FINDINGS: VASCULATURE: There is no definite evidence of a pulmonaryembolus. There are atherosclerotic changes of the aorta and coronary vessels. LUNGS: There is mild right apical pleural thickening and scarring.There is no definite evidence of a pneumothorax. There is scattered mild bronchial wall thickening, which is likely related to mild chronic bronchitis/bronchiolitis. There are mild emphysematous changes of lungswith scattered mild subsegmental atelectasis and scarring. There is nodefinite evidence of a focal consolidation or pleural effusion. There is calcified granuloma in the right lower lobe. There is redemonstration of the postsurgical changes of left upperlobectomy with mild associated volume loss and mild chronic parenchymal scarring/atelectasis, similar to multiple prior studies. There is nodefinite evidence of local recurrence. There is a stable 0.5 cm pulmonary nodule in the posterior right upperlobe abutting the right major fissure, which is grossly unchanged since05/03/2022, and therefore likely benign (axial image 52). There is a stable subtle0.3 cm subpleural pulmonary nodule in the anterolateral right middle lobe, whichis grossly unchanged since 05/03/2022, and therefore likely benign (axialimage 106). MEDIASTINUM/TOMI: The heart size is upper limits of normal. There is no definite evidence of pericardial effusion. There is no definite evidence of mediastinal, hilar, or axillary lymphadenopathy. There are scattered prominent subcentimeter mediastinal lymph nodes noted with largest measuring 0.8 cm in the paratrachealregion, similar to multiple prior studies (axial image 38). There are scattered prominent subcentimeter right hilar lymph nodes noted with largestmeasuring 0.7 cm, similar to multiple prior studies (axial image 65). CHEST WALL: No masses. No subcutaneous air. HARDWARE/LINES/TUBES: None. UPPER ABDOMEN: There is a small hiatal hernia. The bilateral adrenalglands are grossly stable and unremarkable. There are scattered colonicdiverticula noted. There is a 0.3 cm nonobstructing right renal calculus. MUSCULOSKELETAL: There is mild osteopenia. There is a minimal to mild dextroscoliotic curvature of the spine with degenerative changes. OTHER: No significant abnormality. IMPRESSION: No definite evidence of pulmonary embolus. Redemonstration of postsurgical changes of left upper lobectomy with mild associated volume loss and mild chronic parenchymal scarring/atelectasis, similar to multiple prior studies. No definite evidence of localrecurrence or metastatic disease in the chest. Mild emphysematous changes of lungs with scattered mild subsegmental atelectasis and scarring. No definite evidence of focal consolidation. Scattered mild bronchial wall thickening, which is likely related to mild chronic bronchitis/bronchiolitis. THIS IS AN ELECTRONICALLY VERIFIED FINAL REPORT 12/01/2024 8:08 AM - Electronically signed by Man Alonzo D.O. PS: PS Report ID: [id number] Reading Location: [id number] us Emeka Gottlieb MD PhD IMG CT PROCEDURES Nigel chon Result - Final * POCT creatinine for contrast evaluation (11/24/2024 9:37 AM CDT) Creatinine POC 1.10 0.80 - 1.30 mg/dL Comment:Testing performed by : [facility], [address] [place] [address]., [address] Blood 11/24/2024 9:37 AM CDT 11/24/2024 9:37 AM CDT us Emeka Gottlieb MD PhD POINT OF CARE TEST OR DERABLES Final Result [facility] [address] [facility] Department [place] [address] from Last 3 Months Insurance [place] Advance Directives For more information, please contact: [phone] * Full Code (Latest Code Status on File) Date Activated Date Inactivated Comments 04/01/2024 11:35 AM 04/02/2024 5:04 AM * Full Code Date Activated Date Inactivated Comments 08/09/2023 11:38 AM 08/10/2023 5:09 AM * Full Code Date Activated Date Inactivated Comments 07/16/2023 12:19 PM 07/21/2023 2:39 PM Care Teams Cross Tie Maker Relationship Specialty Start Date End Date Sharmin Polanco MD [address] [place] [address] PCP - General 09/25/17 Chico Magaña MD [address] [place] [address] Referring Physician Thoracic Surgery 06/28/23 Emeka Gottlieb MD PhD [address] [place] [address] MEDICAL ONCOLOGY, [address] [address] Medical Oncologist/Log Carrier Operator Medical Oncology 06/28/23
--- OUTSIDE RECORDS SUMMARY | 2025-02-01 07:50 | XMS_ITS ---
Author Organization [facility] [address] [facility] Address [address] [place] [address] Care Team Providers Care Irrigator Name Role Phone Sharmin Polanco MD Primary Care Provider Chico Magaña MD Unavailable Emeka Gottlieb MD PhD Unavailable Active Problems Problem Noted Date Diagnosed Date COPD (chronic obstructive pulmonary disease) 09/2023 Assessment & Plan (07/17/2023 8:39 AM SHEET METAL CONTRACTOR): - add long acting bronchodilator inhaler - add albuterol PRN Acute pain 07/16/2023 Assessment & Plan (07/20/2023 10:43 AM SHEET METAL CONTRACTOR): - APS removed thoracic epidural - multimodal pain regimen: Tylenol, Nan, Robaxin, PRN oxycodone 5 mg q4h and IV dilaudid for breakthrough Current smoker 07/16/2023 Assessment & Plan (07/16/2023 2:58 PM SHEET METAL CONTRACTOR): - Smoking cessation education - nicotine patch if needed - secretion management Malignant neoplasm of hilus of left lung 023 Cancer Staging:Clinical stage from 07/30/2023:Stage IIB(cT2a, cN1, cM0) - Signed by Emeka Gottlieb MD PhD on 07/30/2023 Assessment & Plan (07/20/2023 10:29 AM SHEET METAL CONTRACTOR): Left hilar mass. S/p Left thoracotomy, left [...] 07/20/2023 Assessment & Plan (07/18/2023 8:43 AM SHEET METAL CONTRACTOR): - free water restrict , 1 L/day - monitor
--- OUTSIDE RECORDS SUMMARY | 2025-02-01 07:50 | XMS_ITS | Clinical Summary ---
Author Organization [facility] [address] [facility] Address [address] [place] [address] Care Team Providers Care Map Plotter Name Role Phone Sharmin Polanco MD Primary [...] 09/2023 Assessment & Plan (07/17/2023 8:39 AM AIRCRAFT STRUCTURAL FITTER): - add long acting bronchodilator inhaler - add albuterol PRN Acute pain 07/16/2023 Assessment & Plan (07/20/2023 10:43 AM AIRCRAFT STRUCTURAL FITTER): - APS removed thoracic epidural - multimodal pain regimen: Tylenol, Nan, Robaxin, PRN oxycodone 5 mg q4h and IV dilaudid for breakthrough Current smoker 07/16/2023 Assessment & Plan (07/16/2023 2:58 PM AIRCRAFT STRUCTURAL FITTER): - Smoking cessation education - nicotine patch if needed - secretion management Malignant neoplasm of hilus of left lung 023 Cancer Staging:Clinical stage from 07/30/2023:Stage IIB(cT2a, cN1, cM0) - Signed by Emeka Gottlieb MD PhD on 07/30/2023 Assessment & Plan (07/20/2023 10:29 AM AIRCRAFT STRUCTURAL FITTER): Left hilar mass. S/p Left thoracotomy, left upper lobectomy, PA plasty on 07/16 - Chest tube removed, follow up post-pull CXR - encourage IS - ADAT - bowel regimen - DVT PPX: daily lovenox, SCDs - PT to eval and treat Lung mass 06/12/2023 Resolved Problems Problem Noted Date Diagnosed Date Resolved Date Hyponatremia 07/18/2023 07/20/2023 Assessment & Plan (07/18/2023 8:43 AM AIRCRAFT STRUCTURAL FITTER): - free water restrict , 1 L/day - monitor Encounters Date Type Department Care Team Description 01/25/2025 Results Follow-Up [facility] Rheumatology [address] [facility] Advanced Medicine 5th [place] [address] [place] [address] Paolo Prescott MD CRP (acute phase), Erythrocyte sedimentation rate, Cyclic citrul peptide antibody, IgG, Rheumatoid factor 01/22/2025 10:15 AM CDT Lab [facility] - Lab Collection [address] [facility] Floor [address] [place] [address] Arthralgia, unspecified joint 01/22/2025 9:00 AM CDT Office Visit [facility] Rheumatology [address] [facility] Floor 6 [place] [address] Paolo Prescott MD Arthralgia, unspecified joint (Primary Dx); History of immunotherapy; Mid back pain, chronic; Chronic midline low back pain without sciatica; High risk medication use; Chronic bronchitis, unspecified chronic bronchitis type (HCC); Malignant neoplasm of hilus of left lung (HCC) 12/01/2024 11:45 AM CDT Office Visit [facility] Oncology [address] [place] [phone] Emeka Gottlieb MD PhD Malignant neoplasm of hilus of left lung (HCC) (Primary Dx); Arthralgia, unspecified joint 12/01/2024 11:[address] [facility] at [address] [address] Malignant neoplasm of hilus of left lung (HCC) 11/24/2024 9:07 AM CDT - 11/24/2024 11:59 PM CDT Hospital Encounter [facility] Medical Office Building [address] [place] [address] Malignant neoplasm of hilus of left lung (HCC); Positive D dimer Discharge Disposition: Discharge to home or self care 11/19/2024 Orders Only [facility] Oncology [address] [place] [phone] Angie Nava RN Malignant neoplasm of hilus of left lung (HCC) (Primary Dx); Positive D dimer 11/10/2024 Orders Only [facility] Oncology [address] [place] [phone] Angie Nava RN Malignant neoplasm of hilus of left lung (HCC) (Primary Dx) from Last 3 Months Immunizations Immunization Administration Dates Next Due Influenza, Quadrivalent, Split, Intramuscular Tdap 08/24/2020,10/06/2010 Surgical History Surgery Date Site/Laterality Comments KIDNEY [...] 1 pack a day(from 2) [facility] Utilities Answer Date Recorded In the past [...] week 07/19/2023 How often do you attend [facility] or denominational services? More than 4 times per year 07/19/2023 Do you belong to any clubs o r organizations such as presybeterian groups, unions, fraternal or athletic groups, or [...] place to sleep or slept in a fpc (including now)? No 07/19/2023 Personal Safety Answer Date Recorded Have you ever been in or are you currently in a harmful physical or emotional relationship or is someone making you feel afraid or unsafe? Denies 04/01/2024 Sex and Gender Information Value Date Recorded Sex Assigned at Not on file Legal Sex Male 8:54 AM AIRCRAFT STRUCTURAL FITTER Gender Identity Male 06/18/2023 10:47 PM AIRCRAFT STRUCTURAL FITTER Sexual Orientation Straight 06/18/2023 10 :47 PM AIRCRAFT STRUCTURAL FITTER Obstetrics History Last Filed Vital Signs Vital [...] 01/22/2025 9:03 AM CDT Plan of Treatment Health Maintenance Due Date Last Done Comments Colon Cancer Screening-Colonoscopy 1960 Depression Screening 1960 Hepatitis C Screening 1960 Prostate Cancer Screening-PSA 1960 Hepatitis B Screening 1978 Regular Well Visit/Exam 18-64 1978 Pneumococcal vaccine <65 (1 of 2 - PCV) 1979 Zoster Vaccine (1 of 2) 1979 Covid-19 Vaccine (3 - Pfizer risk series) 04/14/2021 03/17/2021, 02/24/2021 Influenza Vaccine (#1) 2025 04/27/2014 DTaP/Tdap/Td Vaccine (3 - Td or Tdap) 08/24/203004/2021, 10/06/2010 Medical Devices Implanted Type Area Machinist Mechanic Device Identifier Shelf Expiration Date Model / Serial / Lot [employer] Xcela Power Port 8fr [id number] - [id number] Implanted:Qty: 1 on 08/09/2023 at [facility] [employer] 03/17/2028 [id number] / / [id number] Procedures Procedure Name Priority Date/Time Associated Diagnosis [...] 7 AM CDT 01/22/2025 1:01 PM CDT us Paolo Prescott MD LAB BLOOD ORDERABLES Nan l Result [facility] Department of Laboratories [place], [place] [id number] * Erythrocyte sedimentation rate (01/22/2025 10:17 AM CDT) Erythrocyte sedimentation rate 9 1 - 20 mm/hr Blood 01/22/2025 10:1 7 AM CDT 01/22/2025 1:01 PM CDT Paolo Prescott MD LAB BLOOD ORDERABLES Nan l Result Performing Organization Address City/[facility] Co de Phone Number [facility] [place] [address] * Rheumatoid factor (01/22/2025 10:17 AM CDT) Pathologist [facility] Rheumatoid factor, quant <10.0 0.1 - 15.0 IUnits/mL Blood 01/22/2025 10:1 7 AM CDT 01/22/2025 11:18 AM CDT Paolo Prescott MD LAB BLOOD ORDERABLES Nan l Result Performing Organization Address [facility] Co de Phone Number [facility] [place] [address] * CRP (acute phase) (01/22/2025 10:17 AM CDT) Pathologist [facility] CRP 3.2 <=10.0 mg/L Blood 01/22/2025 10:1 7 AM CDT 01/22/2025 11:18 AM CDT Paolo Prescott MD LAB BLOOD ORDERABLES Nan l Result Performing Organization Address City/[facility] Co de Phone Number [facility] [place] [address] * eGFR (12/01/2024 11:07 AM CDT) Pathologist [facility] eGFR >90 >=60 mL/min/1. 73 m2 [...] was last reviewed 2021. Testing performed by: [address] [address] Blood 12/01/2024 11:0 7 AM CDT 12/01/2024 11:08 AM CDT us Emeka Gottlieb MD PhD LAB BLOOD ORDERABLES Final Result [facility] [address] [facility] [place] [address] * (ABNORMAL) Differential, auto (12/01/2024 11:07 AM CDT) Neutrophil abs 5.52 1.50 - 6.50 K/cumm Comment:Testing performed by : [address] [address] Imm gran abs 0.04 0.00 - 0.10 K/cumm [facility] Comment:Testing performed by : [address] [address] Lymphocyte abs 1.89 0.80 - 3.30 K/cumm [facility] Comment:Testing performed by : [address] [address] Monocyte abs 0.73 0.20 - 0.80 K/cumm [facility] Comment:Testing performed by : [address] [address] Eosinophil abs 0.51(H) 0.00 - 0.50 K/cumm [facility] Comment:Testing performed by : [address] [address] Basophil abs 0.09 0.00 - 0.10 K/cumm [facility] Comment:Testing performed by : [address] [address] Neutrophil pct 62.9 % [facility] Comment: Interpretive Data Percent cell count reference ranges are not reported, since discordance with absolute values may lead to misinterpretation of CBC data. Current Interpretive Data was last revised on 2017. Testing performed by: [address] [address] Imm gran pct 0.5 % [facility] Comment: Interpretive Data Percent cell count reference ranges are not reported, since discordance with absolute values may lead to misinterpretation of CBC data. Current Interpretive Data was last revised on 2017. Testing performed by: [address] [address] Lymphocyte pct 21.5 % [facility] Comment: Interpretive Data Percent cell count reference ranges are not reported, since discordance with absolute values may lead to misinterpretation of CBC data. Current Interpretive Data was last revised on 2017. Testing performed by: [address] [address] Monocyte pct 8.3 % [facility] Comment: Interpretive Data Percent cell count reference ranges are not reported, since discordance with absolute values may lead to misinterpretation of CBC data. Current Interpretive Data was last revised on 2017. Testing performed by: [address] [address] Eosinophil pct 5.8 % [facility] Comment: Interpretive Data Percent cell count reference ranges are not reported, since discordance with absolute values may lead to misinterpretation of CBC data. Current Interpretive Data was last revised on 2017. Testing performed by: [address] [address] Basophil pct 1.0 % [facility] Comment: Interpretive Data Percent cell count reference ranges are not reported, since discordance with absolute values may lead to misinterpretation of CBC data. Current Interpretive Data was last revised on 2017. Testing performed by: [address] [address] Blood 12/01/2024 11:0 7 AM CDT 12/01/2024 11:08 AM CDT us Emeka Gottlieb MD PhD LAB BLOOD ORDERABLES Final Result [facility] [address] [facility] [place] [address] * CBC with auto differential (12/01/2024 11:07 AM CDT) WBC 8.78 3.80 - 9.90 K/cumm Comment:Testing performed by : [address] [address] Hgb 13.4 13.0 - 17.5 g/dL [facility] Comment:Testing performed by : [address] [address] Hct 39.3 38.9 - 50.3 % [facility] Comment:Testing performed by : [address] [address] Plt 235 150 - 400 K/cumm [facility] Comment:Testing performed by : [address] [address] MPV 9.5 9.1 - 12.3 fL [facility] Comment:Testing performed by : [address] [address] RBC 4.57 4.30 - 5.80 M/cumm [facility] Comment:Testing performed by : [address] [address] MCV 86.0 81.3 - 96.4 fL [facility] Comment:Testing performed by : [address] [address] MCH 29.3 27.1 - 33.3 pg [facility] MARTINEZ Comment:Testing performed by : [address] [address] MCHC 34.1 32.3 - 35.7 g/dL [facility] Comment:Testing performed by : [address] [address] RDW CV 13.9 11.1 - 14.9 % CERNER Comment:Testing performed by : [address] [address] RDW SD 43.5 35.7 - 48.1 fL [facility] Comment:Testing performed by : [address] [address] NRBC abs 0.00 0.00 - 0.01 K/cumm [facility] Comment:Testing performed by : [address] [address] ANC Prelim 5.52 1.50 - 6.50 K/cumm [facility] Comment: Interpretive Data The rapid ANC is a preliminary automated count and may vary from the final ANC (Neut Abs) reported in the WBC differential that follows. Current interpretive data was last revised 2024. Testing performed by: [address] [address] Blood 12/01/2024 11:0 7 AM CDT 12/01/2024 11:08 AM CDT us Emeka Gottlieb MD PhD LAB BLOOD ORDERABLES Final Result [facility] [address] [facility] Department [place] [address] * CRP (cardiac risk) (12/01/2024 11:07 AM CDT) [facility] hsCRP 3.10 mg/L Comment: Interpretive data Adult [...] last revised on 2018. Testing performed by: [address] [address] Blood 12/01/2024 11:0 7 AM CDT 12/01/2024 11:08 AM CDT us Emeka Gottlieb MD PhD LAB BLOOD ORDERABLES Final Result [facility] [address] [facility] Department [place] [address] * Comprehensive metabolic panel (12/01/2024 11:07 AM CDT) Pathologist [facility] Sodium 136 135 - 145 mmol/L Comment:Testing performed by : [address] [address] Potassium, pl 4.8 3.3 - 4.9 mmol/L [facility] Comment:Testing performed by : [address] [address] Chloride 101 97 - 110 mmol/L [facility] Comment:Testing performed by : [address] [address] CO2 24 22 - 32 mmol/L [facility] Comment:Testing performed by : [address] [address] Anion gap 11 2 - 15 mmol/L [facility] Comment:Testing performed by : [address] [address] BUN 21 6 - 25 mg/dL [facility] Comment:Testing performed by : [address] [address] Creatinine 0.90 0.80 - 1.30 mg/dL [facility] Comment:Testing performed by : [address] [address] Glucose 78 70 - 199 mg/dL [facility] [...] was last revised 2022. Testing performed by: [address] [address] Calcium 9.4 8.5 - 10.3 mg/dL [facility] Comment:Testing performed by : [address] [address] Bilirubin, total 0.3 0.1 - 1.2 mg/dL [facility] Comment:Testing performed by : [address] [address] Protein, pl 7.3 6.5 - 8.5 g/dL [facility] Comment:Testing performed by : [address] [address] Albumin 4.6 3.5 - 5.0 g/dL [facility] Comment:Testing performed by : [address] [address] Alk phos 113 40 - 130 Units/L [facility] Comment:Testing performed by : [address] [address] ALT 47 7 - 55 Units/L [facility] Comment:Testing performed by : [address] [address] AST 31 10 - 50 Units/L [facility] Comment:Testing performed by : [address] [address] Blood 12/01/2024 11:0 7 AM CDT 12/01/2024 11:08 AM CDT us Emeka Gottlieb MD PhD LAB BLOOD ORDERABLES Final Result [facility] [address] [facility] [place] [address] * CT Chest PE (CTA) W Contrast [...] Man Alonzo D.O. PS: PS Report ID: [id number] Reading Location: [id number] Narrative 12/01/2024 8:08 AM CDT EXAM DESCRIPTION: [...] Man Alonzo D.O. PS: PS Report ID: [id number] Reading Location: [id number] Procedure Note Man Alonzo, DO - 12/01/2024 EXAM DESCRIPTION: CT CHEST PE [...] Man Alonzo D.O. PS: PS Report ID: [id number] Reading Location: [id number] us Emeka Gottlieb MD PhD IMG CT PROCEDURES Nigel chon Result - Final * POCT creatinine for contrast evaluation (11/24/2024 9:37 AM CDT) Creatinine POC 1.10 0.80 - 1.30 mg/dL Comment:Testing performed by : [facility], [address] [place] [address]., [address] Blood 11/24/2024 9:37 AM CDT 11/24/2024 9:37 AM CDT us Emeka Gottlieb MD PhD POINT OF CARE TEST OR DERABLES Final Result Performing Organization Address City/State/ZIP Co tn Phone Number [facility] [address] [facility] [place] [address] from Last 3 Months Insurance [facility] Advance Directives For more information, please contact: [phone] * Full Code (Latest Code Status on File) Date Activated Date Inactivated Comments 04/01/2024 11:35 AM 04/02/2024 5:04 AM * Full Code Date Activated Date Inactivated Comments 08/09/2023 11:38 AM 08/10/2023 5:09 AM * Full Code Date Activated Date Inactivated Comments 07/16/2023 12:19 PM 07/21/2023 2:39 PM Care Teams Map Plotter Relationship Specialty Start Date End Date Sharmin Polanco MD [address] [place] [address] PCP - General 09/25/17 Chico Magaña MD [address] [place] [address] Referring Physician Thoracic Surgery 06/28/23 Emeka Gottlieb MD PhD [address] [place] [address] MEDICAL ONCOLOGY, [address] [address] Medical Oncologist/[employer] Director Medical Oncology 06/28/23
--- OUTSIDE RECORDS SUMMARY | 2025-02-01 07:50 | XMS_ITS | Encounter Summary ---
Author Organization [facility] Address [address] [place] [address] Phone Care Team Providers Care Steward Racetrack Name Role Phone Sharmin Polanco MD Primary Care Provider [phone] Chioc Magaña MD Unavailable Emeka Gottlieb MD PhD Unavailable Encounter Details Date Type Department Care Team (Latest Contact Info) Description 01/25/2025 Results Follow-Up [facility] Rheumatology [address] [facility] Advanced Medicine 5th [place] [address] [place] [address] Paolo Prescott MD [address] [place] [address] CRP (acute phase), Erythrocyte sedimentation rate, Cyclic citrul peptide antibody, IgG, Rheumatoid factor Social History Tobacco Use Types Packs/Day Years Used Date Smoking Tobacco: Former Cigarettes 0.1 49 0 07/16/1974 - 07/16/2023 Smokeless Tobacco: Never Comments:Has cut down to 1 p ack a day(from 2) [facility] Utilities Answer Date Recorded In the [...] often do you attend chur ch or catholic services? More than 4 times per year 07/19/2023 Do you belong to any clubs o r organizations such as judaism groups, unions, fraternal or athletic groups, or [...] place to sleep or slept in a half-way (including now)? No 07/19/2023 Personal Safety Answer Date Recorded Have you ever been in or are you currently in a harmful physical or emotional relationship or is someone making you feel afraid or unsafe? Denies 04/01/2024 Sex and Gender Information Value Date Recorded Sex Assigned at Not on file Legal Sex Male 8:54 AM PHOTOGRAMMETRIC TECHNICIAN Gender Identity Male 06/18/2023 10:47 PM PHOTOGRAMMETRIC TECHNICIAN Sexual Orientation Straight 06/18/2023 10 :47 PM PHOTOGRAMMETRIC TECHNICIAN documented as of this encounter Plan of Treatment Not on file documented as of this encounter Visit Diagnoses Not on filedocumented in this encounter Care Teams Steward Racetrack Relationship Specialty Start Date End Date Sharmin Polanco MD [address] [place] [address] PCP - General 09/25/17 Chico Magaña MD [address] [place] [address] Referring Physician Thoracic Surgery 06/28/23 Emeka Gottlieb MD PhD [address] [place] [address] [address] Medical Oncologist/Packing Checker Medical Oncology 06/28/23 documented as of this encounter
--- NOTE | 2025-02-01 07:54 | EST_ITS ---
Patient Info Name: Seferino Rodriguez Age: 64 years : 1960 Gender: Male Ht: 69 in Wt: 210 lbs BSA: 2.18 m2 HR: 65 bpm BP: 125 / 75 mmHg Heart Rhythm: Sinus Rhythm, Right Bundle Branch Block Technical Quality: Good Exam Date: 02/01/2025 7:54 AM Patient Status: O Admit Date: 02/01/2025 Exam Type: CA stress dale w NM A regadenoson stress test was performed. Staff Referring Physician: Sharmin Polanco MD Attending Provider: Sharmin Polanco MD Summary 1. 1. Negative Lexiscan stress test for ischemic ST changes by ECG criteria. 2. 2. Stable hemodynamics throughout the test. 3. 3. Nuclear scan to follow and will be reported separately. Please correlate with it. History/Risk Factors Dyslipidemia: Yes COPD: On Meds Protocol: LEXISCAN Stress ECG Details Stage: REST Duration (min): 4 min : 31 sec HR (bpm): 63 SBP (mmHg): 125 DBP (mmHg): 75 Stage: REST Duration (min): 13 min : 53 sec HR (bpm): 66 SBP (mmHg): 125 DBP (mmHg): 75 Stage: REST Duration (min): 15 min : 54 sec HR (bpm): 64 SBP (mmHg): 125 DBP (mmHg): 75 Stage: STAGE 1 Duration (min): 0 min : 42 sec HR (bpm): 65 SBP (mmHg): 125 DBP (mmHg): 75 Stage: RECOVERY Duration (min): 0 min : 17 sec HR (bpm): 74 SBP (mmHg): 125 DBP (mmHg): 75 Stage: RECOVERY Duration (min): 1 min : 17 sec HR (bpm): 90 SBP (mmHg): 125 DBP (mmHg): 75 Stage: RECOVERY Duration (min): 2 min : 17 sec HR (bpm): 80 SBP (mmHg): 149 DBP (mmHg): 85 Stage: RECOVERY Duration (min): 3 min : 17 sec HR (bpm): 74 SBP (mmHg): 137 DBP (mmHg): 84 Stage: RECOVERY Duration (min): 4 min : 17 sec HR (bpm): 71 SBP (mmHg): 138 DBP (mmHg): 83 Stage: RECOVERY Duration (min): 5 min : 17 sec HR (bpm): 70 SBP (mmHg): 133 DBP (mmHg): 83 Stage: RECOVERY Duration (min): 6 min : 17 sec HR (bpm): 70 SBP (mmHg): 120 DBP (mmHg): 87 Stage: RECOVERY Duration (min): 6 min : 17 sec HR (bpm): 70 SBP (mmHg): 120 DBP (mmHg): 87 Rest HR: 64 bpm Peak HR: 90 bpm Rest Sys BP: 125 mmHg Peak Sys BP: 149 mmHg Max Pred HR: 156 bpm % Max Pred HR: 58 % Target HR: 133 bpm Max RPP: 13,410 bpm*mmHg BP Response: Normal blood pressure response Termination Reason: Completed Protocol Cardiac Symptoms: None Total Time: 0 min : 42 sec Rest Sparks BP: 75 mmHg Peak Sparks BP: 85 mmHg Total Dose: 0.4 mg Resting ECG Normal sinus rhythm, RBBB. Right bundle branch block. Stress ECG No abnormal ST/T wave changes. Arrhythmias Occasional PVCs. Report Signatures
--- NOTE | 2025-02-01 22:57 | WPDCARIOSTRE ---
Nuclear Stress Test INDICATIONS Indications: TOMLINSON PROCEDURE Procedure Performed: Myocardial Perf Spect-Multi Procedure: Patient underwent a lexiscan stress test and was injected with 32.4 mCi of cardiolyte. Multiple tomographic images were obtained. These are of good quality. There is evidence of a small, mild basal septal defect and a large, severe inferior defect with stress imaging. On a separate resting images patient was injected with 10.2 mCi of cardiolyte. Multiple tomographic images were obtained. These are of good quality. There is evidence of a small, mild basal septal defect and a large, severe inferior defect with rest imaging. CONCLUSION Conclusion: 1. Myocardial perfusion imaging demonstrating a fixed basal septal and a fixed inferior perfusion defects suggestive of diaphragmatic attenuation artifact. 2. No evidence of reversible ischemia. 3. Left ventriculogram demonstrates normal LV systolic function with EF at 69% with no wall motion abnormalities. 4. TID score 1.03 is not elevated.
== END 2025-02-01 07:48 | disposition home or self-care (01) ==
LOC: CHSIMG 07:49
PROVIDERS: PCP Internal Medicine; Visit Provider Internal Medicine
DX: R06.02 Shortness of breath (principal)
CPT/HCPCS: 78452; 93017; A9502; J2785

== ENCOUNTER 2025-03-30 00:18 | Day surgery (SDC) | payer BC, SELFPAY ==
[2025-03-11 13:42] VITALS: BMI 31.1
[2025-03-30 08:57] VITALS: BP 142/85; PULSE 67; RESP 16; TEMP 36.8; O2SAT 97; BMI 32.1
[2025-03-30] MEDS: LACTATED RINGERS 1,000 ML 150 ML IV CONT (09:03)
--- NOTE | 2025-03-30 10:04 | P.PNAN_ITS ---
Anes - Initial Pre Proc Eval Procedure: Operation Date: 03/30/25 10:00 Proposed Procedures p Screening Colonoscopy - Eamon Vasquez DO Date/Time: 03/30/25 10:04 Surgeon: Eamon Vasquez DO Pre Op Diagnosis: Prior history of colon polyps Patient Data Age: 64 Gender: M Height: 1.73 m Weight: 95.9 kg Last Vital Signs Temp 98.3 F 03/30/25 08:57 Pulse 67 03/30/25 08:57 Resp 16 03/30/25 08:57 BP 142/85 H 03/30/25 08:57 Pulse Ox 97 03/30/25 08:57 O2 Del Method Room Air 03/30/25 08:57 Allergies Allergy/AdvReac Type Severity Reaction Status Date / Time No Known Allergies Allergy Mild Verified 03/30/25 08:56 Home Medications ?Medication ?Instructions ?Recorded ?Confirmed ?Type hydrocodone 10 mg-acetaminophen 1 tablet PO BID 03/30/25 History 325 mg tablet mv-min-vit K-rfwa-gvrvtq shorty-herb 250 mg PO DAILY 11/0103/30/25 History #124 250 mg-12.5 mg chewable tablet (Airborne (with lysine acetate)) albuterol sulfate 90 mcg/actuation inhalation PRN shor tness of breath 12/21/24 12/23/24 History aerosol inhaler or wheezing omeprazole 40 mg capsule,delayed 40 mg PO DAILY laryn gopharyngeal 12/21/24 03/30/25 Rx release reflux #30 caps Patient hx anesthesia problems: none Family hx anesthesia problems: none Results Review: All pre-operative results and documents have been reviewed as part of the pre- operative evaluation. [facility] Past Medical History Medical History Lung cancer Migraine Social History Social History Smoking status: Former smoker Tobacco type: cigarettes Alcohol intake: current Substance use: current Substance use type: painkillers Do You Feel Safe in your Home?: Yes Lack of Transportation: No Lack of Food: Never True Concerned About Future Housing: No Difficulty Paying Gas/Electric Bills: No Difficulty Paying for Meds: No Currently Unemployed: Decline to Answer Education: High School Diploma/GED Difficulty w/ Childcare or Family Care: No Anes - Eval Final PreProcedure Day of Procedure 03/30/25 10:04 Patient weight: obese Lungs: normal air movement Airway: Mallampati scale class II Neurological: alert and oriented Last oral intake: >/= 8 hours ASA classification: III Emergent: no Anesthetic plan: proceed Anesthesia type and monitoring: general GIVS and standard monitoring Results Review: All pre-operative results and documents have been reviewed as part of the pre- operative evaluation. Hx of lung ca, s/p lobectomy/chemo approx . Ex smoker, quit at that time. Stress test 02/05 nml. Informed Consent: The patient's anesthetic plan and its attendant risks and benefits were discussed with the patient/family/POA. Questions were solicited and answers provided to the satisfaction of the patient/family/POA.
--- NOTE | 2025-03-30 10:15 | P.HP_ITS ---
H&P: HPI History of Present Illness Date/Time: 03/30/25 10:15 Chief Complaint: history of colon polyps Narrative: this is a 64-year-old man who presents for colonoscopy. His last colonoscopy was 7 years ago and a polyp was. He denies family history of colon cancer. He denies any hematochezia or melena. Review of Systems Review of Systems: All systems reviewed & are unremarkable except as noted in HPI and below Constitutional: Constitutional: Denies chills, Denies fever(s), Denies headache(s) and Denies weight loss Eyes: Eyes: Denies change in vision ENT: Denies dizziness, Denies headache(s), Denies neck mass and Denies throat swelling Cardiovascular: Cardiovascular: Denies chest pain, Denies lightheadedness and Denies dyspnea Respiratory: Respiratory: Denies cough, Denies dyspnea and Denies wheezing Gastrointestinal: Gastrointestinal: Denies abdominal pain, Denies change in bowel habits, Denies nausea and Denies vomiting Genitourinary: Genitourinary: Denies hematuria and Denies dysuria Musculoskeletal: Musculoskeletal: Reports as per HPI Integumentary/Breasts: Skin/Breast: Reports as per HPI Neurologic: Denies dizziness and Denies headache(s) Allergic/Immunologic: Allergic/Immunologic: Denies throat swelling and Denies wheezing [facility] Past Medical History Medical History Lung cancer Migraine Social History Social History Smoking status: Former smoker Tobacco type: cigarettes Alcohol intake: current Substance use: current Substance use type: painkillers Do You Feel Safe in your Home?: Yes Lack of Transportation: No Lack of Food: Never True Concerned About Future Housing: No Difficulty Paying Gas/Electric Bills: No Difficulty Paying for Meds: No Currently Unemployed: Decline to Answer Education: High School Diploma/GED Difficulty w/ Childcare or Family Care: No Meds Home Medications and Allergies Home Medications ?Medication ?Instructions ?Recorded ?Confirmed ?Type hydrocodone 10 mg-acetaminophen 1 tablet PO BID 03/30/25 History 325 mg tablet mv-min-vit N-swry-yfczrd shorty-herb 250 mg PO DAILY 11/0103/30/25 History #124 250 mg-12.5 mg chewable tablet (Airborne (with lysine acetate)) albuterol sulfate 90 mcg/actuation inhalation PRN shor tness of breath 12/21/24 12/23/24 History aerosol inhaler or wheezing omeprazole 40 mg capsule,delayed 40 mg PO DAILY laryn gopharyngeal 12/21/24 03/30/25 Rx release reflux #30 caps Allergies Allergy/AdvReac Type Severity Reaction Status Date / Time No Known Allergies Allergy Mild Verified 03/30/25 08:56 Vital Signs Vital Signs - 24 hr 03/30/25 08:57 Temperature 98.3 F Pulse Rate 67 Respiratory Rate 16 Blood Pressure 142/85 H Pulse Oximetry 97 Oxygen Delivery Room Air Exam Const: General: no acute distress and alert Orientation/consciousness: patient oriented x3 HENMT: Head: normocephalic and atraumatic Ears: hearing grossly normal bilaterally Face/Nose/Sinus: Normal nares present Mouth: Yes Normal oral and palatal mucosa present Eyes: Periorbital: periorbital findings normal Sclera: sclerae normal EOM: EOMs intact bilaterally Neck: Neck: normal visual inspection, no lymphadenopathy and trachea midline Chest: Chest palpation & inspection: normal inspection of the chest Resp: Effort & Inspection: normal respiratory effort Auscultation: clear to auscultation bilaterally Cardio: Jugular venous distension: no JVD Rate: regular rate Rhythm: regular rhythm Heart sounds: S1 normal heart sound present and S2 normal heart sound present Peripheral pulses: Peripheral pulses 2+ throughout GI: Inspection: normal to inspection GI Palp: Yes Soft to palpation, No Tenderness to palpation present (GI), No Guarding due to palpation present (GI) and No Rebound tenderness present Percussion: Yes normal to percussion Auscultation: normal bowel sounds : General: Yes no CVA tenderness Back/Spine/Pelvis: Back: no CVA tenderness Neuro: General: patient oriented x3, no focal motor deficits and CN's II-XI intact bilaterally Cognition (Neuro): normal cognition Speech: normal speech Motor exam (neuro): 5/5 motor strength present throughout Extrem: General: capillary refill normal and no clubbing, cyanosis or edema Assessment and Plan Assessment and plan (1) Hx of colonic polyps: Code(s): Z86.0100 - Personal history of colon polyps, unspecified Status: Acute Assessment and Plan: I have recommended colonoscopy. I have discussed the procedure, risks, benefits, and alternatives. Questions were answered. Patient is agreeable to proceed.
--- NOTE | 2025-03-30 10:36 | S_PTH ---
PATIENT: Seferino Rodriguez LOC: [facility] U#:[id number] AGE/SX: 64/M ROOM: RE03/30/[address]: Eamon Vasquez DO : 1960 BED: DIS: 03/30/2025 SPEC #: [id number] RECD: 03/30/25 11:39 STATUS: AARTI REMichela #: [id number] VANDANA: 03/30/25 10:[address]: Eamon Vasquez DEPT: [facility] Surgical RECD BY: Elba Rico MLT, ([facility]) ENTERED: 03/30/25 11:40 SP TYPE: Surgical OTHR DR: Sharmin Polanco MD Tissues: A - Colon Polypectomy B - Colon Polypectomy Procedures: Hematoxylin and Eosin Stain Gross and Microscopic Level 4
[2025-03-30 10:38] VITALS: BP 117/62; PULSE 70; RESP 18; O2SAT 97
[2025-03-30 10:48] VITALS: BP 117/82; PULSE 65; RESP 22; O2SAT 99
[2025-03-30 10:58] VITALS: BP 127/73; PULSE 66; RESP 16; O2SAT 96
== END 2025-03-30 11:04 | disposition home or self-care (01) ==
PROVIDERS: PCP Internal Medicine; Visit Provider Surgery
PROC: 0DJD8ZZ Inspection of Lower Intestinal Tract, Via Natural or Artificial Opening Endoscopic (ICD-10-PCS; CPT 45378; principal; 2025-03-30 10:00)
DX: Z12.11 Encounter for screening for malignant neoplasm of colon (principal); D12.5 Benign neoplasm of sigmoid colon; D12.4 Benign neoplasm of descending colon; K57.30 Diverticulosis of large intestine without perforation or abscess without bleeding; E66.9 Obesity, unspecified; Z68.32 Body mass index [BMI] 32.0-32.9, adult; Z79.891 Long term (current) use of opiate analgesic; Z79.51 Long term (current) use of inhaled steroids; Z90.2 Acquired absence of lung [part of]; Z87.891 Personal history of nicotine dependence; Z92.21 Personal history of antineoplastic chemotherapy; Z85.118 Personal history of other malignant neoplasm of bronchus and lung
CPT/HCPCS: 45385; 88305; J2003; J2704; J7120